=== PATIENT | male | born 1970 | race African-American/Black ===

== ENCOUNTER 2017-01-19 09:08 | Inpatient (IN) | payer BC ==
[2017-01-19 09:53] VITALS: BMI 23.4
--- NOTE | 2017-01-19 11:41 | HP ---
CIWA Score - CIWA Score Nausea/Vomitin-No Nausea/No Vomiting Muscle Tremors: 4-Moderate,w/Arms Extend Anxiety: 3 Agitation: 4-Moderately Restless Paroxysmal Sweats: 3 Orientation: 0-Oriented Tacttile Disturbances: 0-None Auditory Disturbances: 0-None Visual Disturbances: 0-None Headache: 0-None Present CIWA-Ar Total Score: 14 Admission ROS BHS - HPI Chief Complaint: Withdrawal sx. Allergies/Adverse Reactions: Allergies Allergy/AdvReac Type Severity Reaction Status Date / Time tomato Allergy Severe Swelling Verified 01/19/17 10:23 SEAFOOD Allergy Severe Hives Uncoded 01/19/17 10:23 NKDA Allergy Uncoded 01/19/17 11:25 History of Present Illness: 47 y/o man with a long hx. of alcoholism is admitted for detox. Pt. has been in previous detox,he reports 6 yrs. sober. Exam Limitations: No Limitations - Ebola screening Have you traveled outside of the country in the last 21 days: No Have you had contact with anyone from an Ebola affected area: No Have you been sick,other than usual withdrawal symptoms: No Do you have a fever: No - Review of Systems Constitutional: Diaphoresis EENT: reports: No Symptoms Reported Respiratory: reports: No Symptoms reported Cardiac: reports: Palpitations (pulse 110) GI: reports: Nausea, Abdominal cramping : reports: No Symptoms Reported Musculoskeletal: reports: Back Pain, Joint Pain, Muscle Pain Integumentary: reports: Sweating Neuro: reports: Tremors Endocrine: reports: No Symptoms Reported Hematology: reports: No Symptoms Reported Psychiatric: reports: No Sypmtoms Reported Other Systems: Reviewed and Negative Patient History - Patient Medical History Hx Anemia: Yes (was on feosol) Hx Asthma: No Hx Chronic Obstructive Pulmonary Disease (COPD): No Hx Cancer: No Hx Cardiac Disorders: Yes (stent in the descending aorta because of aneurysm) Hx Congestive Heart Failure: Yes Hx Hypertension: Yes Hx Hypercholesterolemia: Yes (no meds) Hx Pacemaker: No HX Cerebrovascular Accident: No Hx Seizures: No Hx Dementia: No Hx Diabetes: No Hx Gastrointestinal Disorders: Yes (stomach ulcer/acid reflux) Hx Liver Disease: No Hx Genitourinary Disorders: No Hx Sexually Transmitted Disorders: No Hx Renal Disease (ESRD): No Hx Thyroid Disease: No Hx Human Immunodeficiency Virus (HIV): No Hx Hepatitis C: No Hx Depression: Yes (lexapro) Hx Suicide Attempt: No Hx Bipolar Disorder: No Hx Schizophrenia: No - Patient Surgical History Past Surgical History: Yes Hx Neurologic Surgery: No Hx Cataract Extraction: No Hx Cardiac Surgery: Yes (Stent in descending aorta) Hx Lung Surgery: No Hx Breast Surgery: No Hx Breast Biopsy: No Hx Abdominal Surgery: No Hx Appendectomy: No Hx Cholecystectomy: No Hx Genitourinary Surgery: No Hx Section: No Hx Orthopedic Surgery: Yes (left hip replacement, right knee/leg, right/arm/ right small toe x2) Anesthesia Reaction: No - PPD History Previous Implant?: Yes Documented Results: Positive w/o proof Implanted On Prior [facility] Admission?: No PPD to be Administered?: No - Smoking Cessation Smoking history: Current every day smoker Have you smoked in the past 12 months: Yes Aproximately how many cigarettes per day: 10 Hx Chewing Tobacco Use: No Initiated information on smoking cessation: Yes 'Breaking Loose' booklet given: 01/19/17 - Substance & Tx. History Hx Alcohol Use: Yes Hx Substance Use: No Substance Use Type: Alcohol Hx Substance Use Treatment: Yes (detox) - Substances Abused Alcohol-beer/vodka Route: Oral Frequency: Daily Amount used: 2-6 pks./1 pt. Age of first use: 8 Date of Last Use: 01/19/17 Family Disease History - Family Disease History Family Disease History: Diabetes: Father (HTN), Heart Disease: Father Admission Physical Exam BHS - Vital Signs Vital Signs: Vital Signs - 24 hr 01/19/17 09:49 Temperature 97.2 F L Pulse Rate 110 H Respiratory 20 Rate Blood Pressure 125/92 - Physical General Appearance: Yes: Tremorous, Sweating, Anxious HEENTM: Yes: Within Normal Limits Respiratory: Yes: Chest Non-Tender, Lungs Clear, Normal Breath Sounds Neck: Yes: Supple Breast: Yes: Breast Exam Deferred Cardiology: Yes: Regular Rhythm, Regular Rate, S1, S2 Abdominal: Yes: Normal Bowel Sounds, Non Tender, Soft Genitourinary: Yes: Within Normal Limits Back: Yes: Within Normal Limits Musculoskeletal: Yes: Within Normal Limits Extremities: Yes: Tremors, Other (multiple surgical scars) Neurological: Yes: Fully Oriented, Alert Integumentary: Yes: Diaphoresis Lymphatic: Yes: Within Normal Limits - Diagnostic (1) Alcohol dependence with uncomplicated withdrawal Current Visit: Yes Status: Acute (2) CHF (congestive heart failure) Current Visit: Yes Status: Acute Qualifiers: Congestive heart failure type: combined Congestive heart failure chronicity: chronic Qualified Code(s): I50.42 - Chronic combined systolic (congestive) and diastolic (congestive) heart failure (3) HTN (hypertension) Current Visit: Yes Status: Acute Qualifiers: Hypertension type: essential hypertension Qualified Code(s): I10 - Essential (primary) hypertension Cleared for Admission BHS - Detox or Rehab [facility] Level of Care: Medically Managed Detox Regimen/Protocol: Librium [facility] Breath Alcohol Content Breath Alcohol Content: 0 Urine Drug Screen - Results Drug Screen Negative: Yes
[2017-01-19] MEDS ORDERED: NICOTINE POLACRILEX 2 MG GUM BUC PRN (11:53)
[2017-01-19] MEDS ORDERED: IBUPROFEN 400 MG TABLET (FP) PO PRN ×2 (11:53→12:05)
[2017-01-19] MEDS ORDERED: guaiFENesin/D-METHORPHAN HB 10 ML UNIT-DOSE CUPS PO PRN (11:53)
[2017-01-19] MEDS ORDERED: MENTHOL/PHENOL 1 EACH UD MM PRN (11:53)
[2017-01-19] MEDS ORDERED: diphenhydrAMINE HCL 50 MG CAPSULE PO PRN (11:53)
[2017-01-19] MEDS ORDERED: MAG HYDROX/AL HYDROX/SIMETH 30 ML UNIT-DOSE CUP PO PRN (11:53)
[2017-01-19] MEDS ORDERED: P-EPHED 60MG/TRIPROLIDI 2.5MG TABLET PO PRN (11:53)
[2017-01-19] MEDS ORDERED: MAGNESIUM HYDROX 2400MG/30ML ORAL SUSPENSION 30 ML CUP PO PRN (11:53)
[2017-01-19] MEDS ORDERED: chlordiazePOXIDE HCL 25 MG CAPSULE PO PRN (11:53)
[2017-01-19] MEDS ORDERED: MAGNESIUM CITRATE 300 ML BOTTLE PO PRN (11:53)
[2017-01-19] MEDS ORDERED: LOPERAMIDE HCL 2 MG CAPSULE PO PRN (11:53)
[2017-01-19] MEDS ORDERED: ACETAMINOPHEN 325 MG TABLET (FP) PO PRN (11:53)
[2017-01-19] MEDS ORDERED: diphenhydrAMINE HCL 25 MG CAPSULE (FP) PO PRN (12:04)
[2017-01-19] MEDS ORDERED: chlordiazePOXIDE HCL 25 MG CAPSULE PO ONE (12:53)
[2017-01-19] MEDS ORDERED: ASPIRIN 81 MG CHEWABLE TABLETS PO SCH (12:55)
[2017-01-19] MEDS ORDERED: amLODIPine BESYLATE 10 MG TABLET (FP) PO SCH (12:55)
[2017-01-19] MEDS ORDERED: PANTOPRAZOLE 40 MG TABLET (FP) PO SCH (12:57)
[2017-01-19] MEDS ORDERED: NICOTINE 21 MG/24 HOURS TOPICAL PATCH TD SCH (12:58)
[2017-01-19] MEDS: CARVEDILOL 25 MG TABLET (FP) PO SCH ×2 (14:53→23:14)
--- NOTE | 2017-01-19 16:35 | CONSULT ---
[facility] Psychiatric Consult - Data Date of interview: 01/20/17 Admission source: [facility] Identifying data: This is 47 years old male, AMBULATING WITH CANE, with psychiatric hospitalization history intoxicated with;. Alcohol and Nicotine Substance Abuse History: Smoking Cessation. Smoking history: Current every day smoker. Have you smoked in the past 12 months: Yes. Aproximately how many cigarettes per day: 10. Hx Chewing Tobacco Use: No. Initiated information on smoking cessation: Yes. 'Breaking Loose' booklet given: 01/19/17. - Substance & Tx. History. Hx Alcohol Use: Yes. Hx Substance Use: No. Substance Use Type : Alcohol. Hx Substance Use Treatment: Yes (detox). - Substances Abused. Alcohol-beer/vodka. Route: Oral. Frequency: Daily. Amount used: 2-6 pks./1 pt. Age of first use: 8. Date of Last Use: 01/19/17 Medical History: CHF, HTN, lower extremities injures Psychiatric History: Patient reports history of depressionl preoccupied with psychiatric medications, reports taking prior to admission: Elavil 25mg po9 bid. Lexapro 20mg poqd. Gabapentin 400mg po bid. [id number] po qhs. Trazodone 200mg po qhs Physical/Sexual Abuse/Trauma History: Denies Additional Comment: Elavil 25mg po9 bid. Lexapro 20mg poqd. Gabapentin 400mg po bid. [id number] po qhs. Trazodone 200mg po qhs Mental Status Exam - Mental Status Exam Alert and Oriented to: Person Cognitive Function: Fair Patient Appearance: Unkempt Mood: Anxious Affect: Mood Congruent Patient Behavior: Impulsive, Talkative Speech Pattern: Excessive Voice Loudness: Mildly Loud Thought Process: Circumstantial, Goal Oriented Thought Disorder: Being Controlled Hallucinations: Denies Suicidal Ideation: Denies Homicidal Ideation: Denies Insight/Judgement: Fair Sleep: Difficulty falling asleep Appetite: Weight loss Muscle strength/Tone: Mild Hypotonicity Gait/Station: Hemiparetic Additional Comments: Elavil 25mg po9 bid. Lexapro 20mg poqd. Gabapentin 400mg po bid. [id number] po qhs. Trazodone 200mg po qhs Psychiatric Findings - Problem List ([place] 1, 2,3) (1) Alcohol dependence with uncomplicated withdrawal Current Visit: Yes Status: Acute (2) Nicotine dependence Current Visit: Yes Status: Acute (3) Drug-induced mood disorder Current Visit: Yes Status: Acute (4) ADHD (attention deficit hyperactivity disorder) Current Visit: Yes Status: Acute - Initial Treatment Plan Initial Treatment Plan: Elavil 25mg po9 bid. Lexapro 20mg poqd. Gabapentin 400mg po bid. [id number] po qhs. Trazodone 200mg po qhs
[2017-01-19] MEDS: chlordiazePOXIDE HCL 25 MG CAPSULE PO SCH ×2 (17:28→23:14)
[2017-01-19 20:03] LABS: URINE APPEARANCE CLEAR; URINE BILIRUBIN NEGATIVE (NEGATIVE); URINE BLOOD NEGATIVE (NEGATIVE); URINE COLOR LTYELLOW; URINE GLUCOSE (UA) NEGATIVE (NEGATIVE); URINE KETONE NEGATIVE (NEGATIVE); URINE LEUK ESTERASE NEGATIVE (NEGATIVE); URINE NITRITE NEGATIVE (NEGATIVE); URINE UROBILINOGEN NEGATIVE E.U./dl (0.2-1.0)
[2017-01-19 20:13] LABS: URINE PROTEIN 3+ (NEGATIVE)
[2017-01-19 20:24] LABS: URINE MUCUS RARE; URINE RBC <1 /hpf (0-3); URINE WBC 2 /hpf (3-5)
[2017-01-19] MEDS ORDERED: THIAMINE HCL 100 MG TABLET (FP) PO SCH (22:00)
[2017-01-19] MEDS ORDERED: hydrALAZINE HCL 25 MG TABLET (FP) PO SCH (22:00)
[2017-01-20] MEDS: chlordiazePOXIDE HCL 25 MG CAPSULE PO SCH (06:14)
[2017-01-20 09:50] LABS: MCHC 31.1 g/dl (32.0-35.9); MEAN CELL VOLUME 77.2 fl (80-96); MEAN PLT VOLUME 7.5 fl (7.5-11.1); PLATELET COUNT 726 K/MM3 (134-434); RDW 18.9 % (11.9-15.9); WHITE BLOOD COUNT 6.9 K/mm3 (4.0-10.0)
[2017-01-20 09:54] LABS: ALBUMIN 3.4 g/dl (3.4-5.0); BILIRUBIN,TOTAL 0.2 mg/dL (0.2-1.0); CALCIUM 9.4 mg/dL (8.5-10.1); CREATININE 1.5 mg/dL (0.7-1.3); TOT PROT 7.9 g/dl (6.4-8.2)
[2017-01-20] MEDS ORDERED: ESCITALOPRAM OXALATE 20 MG TABLET (FP) PO SCH (10:00)
[2017-01-20] MEDS ORDERED: AMITRIPTYLINE HCL 25 MG TABLET (FP) PO SCH (10:00)
[2017-01-20] MEDS ORDERED: GABAPENTIN 400 MG CAPSULE (FP) PO SCH (10:00)
[2017-01-20] MEDS ORDERED: PRENATAL VITAMINS W/ FOLIC ACID TABLET (FP) PO SCH (10:00)
[2017-01-20 10:11] VITALS: BP 148/93; PULSE 92; TEMP 98.8
--- NOTE | 2017-01-20 10:40 | PN ---
S Progress Note Note: pt became irrate screaming yelling at entire staff non approachable; security called pt escorted off the unit; administrative discharge
--- NOTE | 2017-01-20 10:41 | DS ---
[facility] Detox Discharge Summary Admission Date: 01/19/17 Discharge Date: 01/20/17 (non compliant ) - History Present History: Alcohol Dependence - Physical Exam Results Vital Signs: Vital Signs Temperature 98.8 F 01/20/17 10:11 Pulse Rate 92 H 01/20/17 10:11 Respiratory Rate 20 01/20/17 10:11 Blood Pressure 148/93 01/20/17 10:11 O2 Sat by Pulse Oximetry (%) - Medication Discharge Medications: Ambulatory Orders Amitriptyline HCl [Elavil -] 25 mg PO HS 01/19/17 Amlodipine Besylate [Norvasc -] 10 mg PO DAILY 01/19/17 Aspirin [ASA -] 81 mg PO DAILY 01/19/17 Carvedilol [Coreg -] 25 mg PO BID 01/19/17 Diphenhydramine [Benadryl -] 50 mg PO TID 01/19/17 Escitalopram Oxalate [Lexapro -] 20 mg PO DAILY 01/19/17 Gabapentin [Neurontin -] 400 mg PO BID 01/19/17 Hydralazine HCl [Apresoline -] 25 mg PO TID 01/19/17 Hydrochlorothiazide [Hctz -] 25 mg PO BID 01/19/17 Pantoprazole Sodium [Protonix -] 40 mg PO DAILY 01/19/17 Trazodone HCl [Desyrel -] 100 mg PO HS 01/19/17 Zolpidem Tartrate [Ambien] 10 mg PO HS 01/19/17 Amitriptyline HCl [Elavil -] 25 mg PO BID #60 tablet 01/20/17 Escitalopram Oxalate [Lexapro -] 20 mg PO DAILY #30 tablet 01/20/17 Gabapentin [Neurontin -] 400 mg PO BID #60 capsule 01/20/17 Trazodone HCl [Desyrel -] 200 mg PO HS #30 tablet 01/20/17 Zolpidem Tartrate [Ambien] 10 mg PO HS #14 tablet MDD 10 01/20/17 - Diagnosis (1) ADHD (attention deficit hyperactivity disorder) Current Visit: Yes Status: Acute (2) Alcohol dependence with uncomplicated withdrawal Current Visit: Yes Status: Chronic (3) CHF (congestive heart failure) Current Visit: Yes Status: Acute Qualifiers: Congestive heart failure type: combined Congestive heart failure chronicity: chronic Qualified Code(s): I50.42 - Chronic combined systolic (congestive) and diastolic (congestive) heart failure (4) Drug-induced mood disorder Current Visit: Yes Status: Acute (5) HTN (hypertension) Current Visit: Yes Status: Chronic Qualifiers: Hypertension type: essential hypertension Qualified Code(s): I10 - Essential (primary) hypertension (6) Nicotine dependence Current Visit: Yes Status: Chronic Qualifiers: Nicotine product type: cigarettes Substance use status: uncomplicated Qualified Code(s): F17.210 - Nicotine dependence, cigarettes, uncomplicated - AMA Did Patient Leave Against Medical Advice: No
[2017-01-20 11:44] LABS: SICKLE CELL SCREEN NEGATIVE (NEGATIVE)
--- NOTE | 2017-01-20 12:52 | EKG ---
Test Reason : Blood Pressure : / mmHG Vent. Rate : 084 BPM Atrial Rate : 084 BPM P-R Int : 164 ms QRS Dur : 080 ms QT Int : 386 ms P-R-T Axes : 062 048 014 degrees QTc Int : 456 ms NORMAL SINUS RHYTHM POSSIBLE LEFT ATRIAL ENLARGEMENT BORDERLINE ECG NO PREVIOUS ECGS AVAILABLE Confirmed by TESSA LOWE MD ([id number]) on 01/20/2017 12:52:07 PM Referred By: Confirmed By:TESSA LOWE MD
[2017-01-20] MEDS ORDERED: chlordiazePOXIDE HCL 25 MG CAPSULE PO SCH (17:00)
[2017-01-20] MEDS ORDERED: traZODone HCL 100 MG TABLET (FP) PO SCH (22:00)
[2017-01-20] MEDS ORDERED: ZOLPIDEM TARTRATE 10 MG TABLET (PARK CARE ONLY) PO PRN (22:00)
[2017-01-21] MEDS ORDERED: chlordiazePOXIDE 5 MG CAPSULE PO SCH (17:00)
[2017-01-22] MEDS ORDERED: chlordiazePOXIDE HCL 10 MG CAPSULE PO SCH (17:00)
== END 2017-01-20 10:32 | disposition home or self-care (01) | DRG 775 ==
LOC: YASAS 09:08 → Y6N 12:43
PROVIDERS: ADMIT Internal Medicine Addiction Medicine; ATTEND Internal Medicine Addiction Medicine
PROC: HZ2ZZZZ Detoxification Services for Substance Abuse Treatment (ICD-10-PCS; principal; 2017-01-19)
DX: F10.230 Alcohol dependence with withdrawal, uncomplicated (principal); F17.210 Nicotine dependence, cigarettes, uncomplicated; F90.9 Attention-deficit hyperactivity disorder, unspecified type; F19.24 Other psychoactive substance dependence with psychoactive substance-induced mood disorder; I10 Essential (primary) hypertension; I50.42 Chronic combined systolic (congestive) and diastolic (congestive) heart failure; K21.9 Gastro-esophageal reflux disease without esophagitis; Z86.2 Personal history of diseases of the blood and blood-forming organs and certain disorders involving the immune mechanism; Z95.5 Presence of coronary angioplasty implant and graft; Z86.79 Personal history of other diseases of the circulatory system; Z96.641 Presence of right artificial hip joint; Z87.11 Personal history of peptic ulcer disease; F91.8 Other conduct disorders
CPT/HCPCS: 36415; 80053; 81003; 81015; 85027; 85660; 86593; 93005; 93010

== ENCOUNTER 2018-01-21 11:11 | Inpatient (IN) | payer BC ==
[2018-01-21 11:47] VITALS: BMI 20.3
--- NOTE | 2018-01-21 14:08 | HP ---
COWS - Scale Resting Pulse: 1= DC 81-100 Sweatin=Flushed/Facial Moisture Restless Observation: 1= Difficult to Sit Still Pupil Size: 1= Pupils >than Normal Bone or Joint Aches: 2= Severe Diffuse Aches Runny Nose/ Eye Tearin= Nasal Congestion GI Upset > 30mins: 2= Nausea/Diarrhea Tremor Observation: 2= Slight Tremor Visible Yawning Observation: 0= None Anxiety or Irritability: 1=Feels Anxious/Irritable Goose Flesh Skin: 0=Smooth Skin COWS Score: 13 CIWA Score - CIWA Score Nausea/Vomitin Muscle Tremors: 3 Anxiety: 2 Agitation: 2 Paroxysmal Sweats: 2 Orientation: 0-Oriented Tacttile Disturbances: 2-Mild Itch/Numbness/Burn Auditory Disturbances: 0-None Visual Disturbances: 0-None Headache: 2-Mild CIWA-Ar Total Score: 16 Admission ROS S - HPI Chief Complaint: I need to stop using alcohol. Allergies/Adverse Reactions: Allergies Allergy/AdvReac Type Severity Reaction Status Date / Time tomato Allergy Severe Swelling Verified 01/21/18 14:12 SEAFOOD Allergy Severe Hives Uncoded 01/21/18 14:12 NKDA Allergy Uncoded 01/21/18 14:12 History of Present Illness: Pt with h/o alcohol dependency needs detox. Exam Limitations: No Limitations - Ebola screening Have you traveled outside of the country in the last 21 days: No (N) Have you had contact with anyone from an Ebola affected area: No Have you been sick,other than usual withdrawal symptoms: No Do you have a fever: No - Review of Systems Constitutional: Loss of Appetite, Malaise, Night Sweats, Changes in sleep, Unintentional Wgt. Loss EENT: reports: Blurred Vision, Dental Problems (missing teeth) Respiratory: reports: No Symptoms reported Cardiac: reports: Other (chf, s/p descending aorta stent) GI: reports: Nausea, Poor Appetite, Indigestion : reports: No Symptoms Reported Musculoskeletal: reports: Joint Pain, Muscle Pain, Muscle Weakness, Joint Stiffness Integumentary: reports: Dryness, Sweating Neuro: reports: Headache, Tremors, Weakness Endocrine: reports: No Symptoms Reported Hematology: reports: Anemia Psychiatric: reports: Orientated x3, Anxious, Depressed Other Systems: Reviewed and Negative Patient History - Patient Medical History Hx Anemia: Yes (was on feosol) Hx Asthma: No Hx Chronic Obstructive Pulmonary Disease (COPD): No Hx Cancer: No Hx Cardiac Disorders: Yes (stent in the descending aorta because of aneurysm) Hx Congestive Heart Failure: Yes Hx Hypertension: Yes Hx Hypercholesterolemia: Yes (no meds) Hx Pacemaker: No HX Cerebrovascular Accident: No Hx Seizures: No Hx Dementia: No Hx Diabetes: No Hx Gastrointestinal Disorders: Yes (stomach ulcer/acid reflux) Hx Liver Disease: No Hx Genitourinary Disorders: No Hx Sexually Transmitted Disorders: No Hx Renal Disease (ESRD): No Hx Thyroid Disease: No Hx Human Immunodeficiency Virus (HIV): No Hx Hepatitis C: No Hx Depression: Yes (lexapro) Hx Suicide Attempt: No Hx Bipolar Disorder: Yes Hx Schizophrenia: No - Patient Surgical History Past Surgical History: Yes Hx Neurologic Surgery: No Hx Cataract Extraction: No Hx Cardiac Surgery: Yes (Stent in descending aorta) Hx Lung Surgery: No Hx Breast Surgery: No Hx Breast Biopsy: No Hx Abdominal Surgery: No Hx Appendectomy: No Hx Cholecystectomy: No Hx Genitourinary Surgery: No Hx Section: No Hx Orthopedic Surgery: Yes (left hip replacement, right knee/leg, right/arm/ right small toe x2) Other Surgical History: aneurysm (aorta) Anesthesia Reaction: No - PPD History Previous Implant?: Yes Documented Results: Positive w/o proof Implanted On Prior [facility] Admission?: No PPD to be Administered?: No - Reproductive History Patient is a Female of Child Bearing Age (11 -55 yrs old): No - Smoking Cessation Smoking history: Current every day smoker Have you smoked in the past 12 months: Yes Aproximately how many cigarettes per day: 10 Cigars Per Day: 0 Hx Chewing Tobacco Use: No Initiated information on smoking cessation: Yes 'Breaking Loose' booklet given: 01/21/18 - Substance & Tx. History Hx Alcohol Use: Yes Hx Substance Use: Yes Substance Use Type: Alcohol, Cocaine, Opiates Hx Substance Use Treatment: Yes - Substances Abused Alcohol-lana/beer Route: Oral Frequency: Daily Amount used: 2 pts./8-12 (16 oz.) Age of first use: 8 Date of Last Use: 01/21/18 Oxycodone (prescribed) Route: Oral Frequency: Daily Amount used: 30 mg. QID Age of first use: 43 Date of Last Use: 01/19/18 Family Disease History - Family Disease History Family Disease History: Diabetes: Father (HTN), Heart Disease: Father Admission Physical Exam S - Vital Signs Vital Signs: Vital Signs - 24 hr 01/21/18 11:45 Temperature 97.2 F L Pulse Rate 86 Respiratory 20 Rate Blood Pressure 162/91 - Physical General Appearance: Yes: Disheveled, Thin, Anxious, Other (ambulates with a cane ) HEENTM: Yes: EOMI, Hearing grossly Normal, JON, Other (multiple missing teeth others in poor repair) Respiratory: Yes: Chest Non-Tender, Lungs Clear, Normal Breath Sounds, No Respiratory Distress Neck: Yes: Supple Breast: Yes: Within Normal Limits Cardiology: Yes: Regular Rhythm, Regular Rate, S1, S2 Abdominal: Yes: Non Tender, Flat, Soft, Increased Bowel Sounds Genitourinary: Yes: Within Normal Limits Back: Yes: Within Normal Limits Musculoskeletal: Yes: Back pain, Joint Stiffness, Muscle Pain, Muscle weakness, Other (multiple well healed scars rt forearm, left hip, rt knee and leg. Multiple joint deformities hands /digits hieu.) Extremities: Yes: Tremors Neurological: Yes: roadside mechanic II-XII NML intact, Fully Oriented, Alert, Normal Mood/ Affect Integumentary: Yes: Moist Lymphatic: Yes: Within Normal Limits - Diagnostic (1) Opioid dependence Current Visit: Yes Status: Chronic Qualifiers: Substance use status: uncomplicated Qualified Code(s): F11.20 - Opioid dependence, uncomplicated (2) Status post left hip replacement Current Visit: No Status: Chronic (3) Rheumatoid arthritis Current Visit: Yes Status: Chronic Qualifiers: Rheumatoid arthritis location: multiple sites (4) CHF (congestive heart failure) Current Visit: No Status: Chronic Qualifiers: Qualified Code(s): I50.42 - Chronic combined systolic (congestive) and diastolic (congestive) heart failure (5) Alcohol dependence with uncomplicated withdrawal Current Visit: Yes Status: Chronic (6) HTN (hypertension) Current Visit: Yes Status: Chronic Qualifiers: Hypertension type: essential hypertension Qualified Code(s): I10 - Essential (primary) hypertension (7) Nicotine dependence Current Visit: Yes Status: Chronic Qualifiers: Nicotine product type: cigarettes Substance use status: uncomplicated Qualified Code(s): F17.210 - Nicotine dependence, cigarettes, uncomplicated (8) Ascending aortic aneurysm Current Visit: Yes Status: Acute (9) 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
[2018-01-21] MEDS ORDERED: MAGNESIUM HYDROX 2400MG/30ML ORAL SUSPENSION 30 ML CUP PO PRN (14:19)
[2018-01-21] MEDS ORDERED: P-EPHED 60MG/TRIPROLIDI 2.5MG TABLET PO PRN (14:19)
[2018-01-21] MEDS ORDERED: guaiFENesin/D-METHORPHAN HB 10 ML UNIT-DOSE CUPS PO PRN (14:19)
[2018-01-21] MEDS ORDERED: LOPERAMIDE HCL 2 MG CAPSULE PO PRN (14:19)
[2018-01-21] MEDS ORDERED: MAGNESIUM CITRATE 300 ML BOTTLE PO PRN (14:19)
[2018-01-21] MEDS ORDERED: MAG HYDROX/AL HYDROX/SIMETH 30 ML UNIT-DOSE CUP PO PRN (14:19)
[2018-01-21] MEDS ORDERED: NICOTINE POLACRILEX 4 MG GUM BUC PRN (14:19)
[2018-01-21] MEDS ORDERED: MENTHOL/PHENOL 1 EACH UD MM PRN (14:19)
[2018-01-21] MEDS ORDERED: chlordiazePOXIDE HCL 25 MG CAPSULE PO PRN (14:19)
[2018-01-21] MEDS ORDERED: IBUPROFEN 400 MG TABLET (FP) PO PRN (14:19)
[2018-01-21] MEDS ORDERED: hydrOXYzine PAMOATE 50 MG CAPSULE (FP) PO PRN (14:19)
[2018-01-21] MEDS ORDERED: METHADONE HCL 10 MG TABLET (FOR DETOX USE ONLY) PO ONE ×2 (15:25→23:00)
[2018-01-21 17:51] LABS: HEMATOCRIT 33.6 % (35.4-49); MCH 24.7 pg (25.7-33.7); MCHC 32.7 g/dl (32.0-35.9); MEAN CELL VOLUME 75.4 fl (80-96); MEAN PLT VOLUME 7.5 fl (7.5-11.1); PLATELET COUNT 593 K/MM3 (134-434); RBC 4.45 M/mm3 (4.00-5.60); RDW 20.1 % (11.9-15.9); WHITE BLOOD COUNT 5.1 K/mm3 (4.0-10.0)
[2018-01-21 18:10] LABS: ALBUMIN 3.7 g/dl (3.4-5.0); ANION GAP 10 (8-16); BLOOD UREA NITROGEN 27 mg/dL (7-18); CALCIUM 8.8 mg/dL (8.5-10.1); CHLORIDE 102 mmol/L (98-107); CO2 25 mmol/L (21-32); GLUCOSE,RANDOM 72 mg/dL (74-106); POTASSIUM 4.1 mmol/L (3.5-5.1); SODIUM 137 mmol/L (136-145)
[2018-01-21 18:13] LABS: ALK PHOS 132 U/L (45-117); BILIRUBIN,TOTAL 0.4 mg/dL (0.2-1.0); CREATININE 2.4 mg/dL (0.7-1.3); SGOT/AST 13 U/L (15-37); SGPT/ALT 7 U/L (12-78); TOT PROT 7.6 g/dl (6.4-8.2)
[2018-01-21] MEDS ORDERED: METHADONE HCL 10 MG TABLET (FOR DETOX USE ONLY) ONE (18:36)
[2018-01-21] MEDS: chlordiazePOXIDE HCL 25 MG CAPSULE PO SCH ×2 (18:46→22:20)
--- NOTE | 2018-01-21 19:19 | CONSULT ---
[facility] Psychiatric Consult - Data Date of interview: 01/21/18 Admission source: [facility] Identifying data: Readmission to [facility] for this 48 y/o AA male seeking detox treatment on for alcohol,cocaine and opiate dependence.Patient is ,no children,domiciled (lives with brother),unemployed,disabled and supported on SSI benefits. Substance Abuse History: Discussed with patient in this interview.Mr Damian endorses daily consumption of lana (2-3 pints daily, depending on available funds) + 8-12 X 16 oz of beer.For years.Uses crack three times a week but admits to a recent binge of crack (allegedly spent 500 dollars worth of the substance in past 3 days). Details in this imported [facility] report : Smoking history : Current every day smoker. Have you smoked in the past 12 months: Yes. Aproximately how many cigarettes per day: 10. Hx Chewing Tobacco Use: No. Initiated information on smoking cessation: Yes. 'Breaking Loose' booklet given : 01/19/17. - Substance & Tx. History. Hx Alcohol Use: Yes. Hx Substance Use : No. Substance Use Type: Alcohol. Hx Substance Use Treatment: Yes (detox). - Substances Abused. Alcohol-beer/vodka. Route: Oral. Frequency: Daily. Amount used: 2-6 pks./1 pt. Age of first use: 8. Date of Last Use: 01/19/17 Medical History: Multiple medical co-morbidities : congestive heart failure, rheumatoid arthritis,chronic pain syndrome,past history of osteomyelitis (right leg and toes),gastric ulcer,antecedent of left hip replacement,orthosurgery ( right knee + right forearm),residual contracture of right forearm (surgical scars),weight loss and a recent history of cardiac stent (dissecting aneurysm of the descending thoracic aorta).Mr Damian ambulates with a cane. Psychiatric History: Patient admits to one psychiatric hospitalization at [facility] (May 2017).Diagnosed with MDD,Anxiety Disorder and " some bipolar issues ".Prescribed a regimen of trazodone 100 mg/hs + lexapro 20 mg/day + amitryptiline 25 mg/hs + ambien 10 mg/hs.Mr Damian goes to the [facility] clinic,in the [place], for his psychiatric aftercare.He indicates that he last took his medications 2-3 days prior to this [facility] visit.Patient denies history of suicide attempts. Physical/Sexual Abuse/Trauma History: Patient denies history of abuse. Additional Comment: Urine Drug Screen Results: MYA-Cocaine, TCA-Tricyclic Antidepressant, OXY-Oxycodone.Noted. Mental Status Exam - Mental Status Exam Alert and Oriented to: Time, Place, Person Cognitive Function: Good Patient Appearance: Well Groomed (thin habitus,cheloid scars on right wrist/ forearm) Mood: Hopeful (calm), Euthymic Affect: Appropriate, Normal Range Patient Behavior: Fatigued, Talkative, Appropriate, Cooperative Speech Pattern: Clear, Appropriate Voice Loudness: Normal Thought Process: Goal Oriented Thought Disorder: Not Present Hallucinations: Denies Suicidal Ideation: Denies Homicidal Ideation: Denies Insight/Judgement: Poor Sleep: Poorly, Difficulty falling asleep Appetite: Good Gait/Station: Other (walks with a cane ; unsteady gait due to orthopedic issues) Psychiatric Findings - Problem List ([place] 1, 2,3) (1) Alcohol dependence with uncomplicated withdrawal Current Visit: Yes Status: Chronic (2) Opioid dependence Current Visit: Yes Status: Chronic Qualifiers: Substance use status: uncomplicated Qualified Code(s): F11.20 - Opioid dependence, uncomplicated (3) Cocaine dependence Current Visit: Yes Status: Acute (4) Nicotine dependence Current Visit: Yes Status: Acute Qualifiers: Nicotine product type: cigarettes Substance use status: uncomplicated Qualified Code(s): F17.210 - Nicotine dependence, cigarettes, uncomplicated (5) Drug-induced mood disorder Current Visit: Yes Status: Suspected (6) Depressive disorder Current Visit: Yes Status: Chronic Comment: As per self-report and existing records.On medications.OPD care at [facility]. (7) Insomnia Current Visit: Yes Status: Acute - Initial Treatment Plan Initial Treatment Plan: Records revisited.Psychoeducation and support provided in this session.Sleep hygiene.Falls precautions.Detoxification is initiated.Orientation to unit : done by nursing team.Patient is advised to attend to / participate in groups,community meetings and recreational activities occurring in this hospital course.He agrees.Medications reconciled : trazodone 50 mg po hs (reduced) + lexapro 20 mg po daily + elavil 25 mg /hs ( temporarily withdrawn) + ambien 10 mg po hs prn.Side effects/benefits of each drug are discussed with the patient.Mr Damian is made aware of the risk for parasomnias (sleep-walking),sexual dysfunction,suicidal ideation,priapism and oversedation.Consent (verbal) given for the inclusion of these drugs in the current regime of treatment.Doses will be modified as clinically indicated.Clinical course will be monitored on a daily basis.
[2018-01-21] MEDS: THIAMINE HCL 100 MG TABLET (FP) PO SCH (21:27)
[2018-01-21] MEDS: ACETAMINOPHEN 325 MG TABLET (FP) PO PRN (21:28)
[2018-01-21] MEDS: GABAPENTIN 400 MG CAPSULE (FP) PO SCH (21:30)
[2018-01-21] MEDS: traZODone HCL 50 MG TABLET (FP) PO SCH (21:31)
[2018-01-21] MEDS: CARVEDILOL 25 MG TABLET (FP) PO SCH (21:31)
[2018-01-21] MEDS: ZOLPIDEM TARTRATE 10 MG TABLET (PARK CARE ONLY) PO SCH (21:38)
[2018-01-21 23:00] LABS: URINE APPEARANCE TURBID; URINE BILIRUBIN NEGATIVE (NEGATIVE); URINE BLOOD NEGATIVE (NEGATIVE); URINE COLOR YELLOW; URINE GLUCOSE (UA) NEGATIVE (NEGATIVE); URINE KETONE NEGATIVE (NEGATIVE); URINE LEUK ESTERASE NEGATIVE (NEGATIVE); URINE NITRITE NEGATIVE (NEGATIVE); URINE PROTEIN 2+ (NEGATIVE); URINE UROBILINOGEN NEGATIVE mg/dL (0.2-1.0)
[2018-01-21 23:03] LABS: EPI CELLS RARE /HPF (FEW); URINE BACTERIA RARE /hpf (NONE SEEN); URINE MUCUS RARE
[2018-01-22] MEDS: chlordiazePOXIDE HCL 25 MG CAPSULE PO SCH ×4 (05:54→22:24)
[2018-01-22] MEDS: GABAPENTIN 400 MG CAPSULE (FP) PO SCH ×3 (05:54→22:22)
[2018-01-22] MEDS ORDERED: PANTOPRAZOLE 40 MG TABLET (FP) PO SCH (10:00)
[2018-01-22] MEDS ORDERED: METHADONE HCL 10 MG TABLET (FOR DETOX USE ONLY) PO SCH (10:00)
[2018-01-22] MEDS ORDERED: COLLOIDAL OATMEAL 1 BAR EACH TP PRN (10:23)
[2018-01-22] MEDS ORDERED: diphenhydrAMINE HCL 50 MG CAPSULE PO ONE (10:30)
[2018-01-22] MEDS ORDERED: HYDROCORTISONE 1% TOPICAL OINT 30 GM TUBE TP SCH (10:30)
[2018-01-22] MEDS: ESCITALOPRAM OXALATE 20 MG TABLET (FP) PO SCH (10:37)
[2018-01-22] MEDS: amLODIPine BESYLATE 10 MG TABLET (FP) PO SCH (10:38)
[2018-01-22] MEDS: PRENATAL VITAMINS W/ FOLIC ACID TABLET (FP) PO SCH (10:38)
[2018-01-22] MEDS: CARVEDILOL 25 MG TABLET (FP) PO SCH ×2 (10:39→22:23)
[2018-01-22] MEDS: ASPIRIN 81 MG CHEWABLE TABLETS PO SCH (10:40)
[2018-01-22] MEDS ORDERED: diphenhydrAMINE HCL 25 MG CAPSULE (FP) PO ONE ×2 (10:42→23:07)
[2018-01-22] MEDS: NICOTINE 21 MG/24 HOURS TOPICAL PATCH TD SCH (10:44)
[2018-01-22] MEDS: ACETAMINOPHEN 325 MG TABLET (FP) PO PRN (11:40)
--- NOTE | 2018-01-22 16:24 | PN ---
[facility] CIWA - CIWA Score Nausea/Vomitin-No Nausea/No Vomiting Muscle Tremors: 3 Anxiety: 5 Agitation: 4-Moderately Restless Paroxysmal Sweats: 3 Orientation: 0-Oriented Tacttile Disturbances: 3-Moderate Itch/Numb/Burn Auditory Disturbances: 0-None Visual Disturbances: 0-None Headache: 0-None Present CIWA-Ar Total Score: 18 BHS COWS - Scale Resting Pulse: 1= [place] 81-100 Sweatin= Chills/Flushing Restless Observation: 1= Difficult to Sit Still Pupil Size: 0= Normal to Room Light Bone or Joint Aches: 2= Severe Diffuse Aches Runny Nose/ Eye Tearin= None GI Upset > 30mins: 0= None Tremor Observation of Outstretched Hands: 2= Slight Tremor Visible Yawning Observation: 0= None Anxiety or Irritability: 4=Extreme Anxiety Goose Flesh Skin: 3=Piloerection COWS Score: 14 BHS Progress Note (SOAP) Subjective: Tremors, Anxious, Body Aches, Interrupted Sleep. Objective: PATIENT A & O X 3, OBSERVED AMBULATING ON UNIT. NO ACUTE DISTRESS. 01/22/18 16:20 Vital Signs Temperature 97.7 F 01/22/18 14:10 Pulse Rate 82 01/22/18 14:10 Respiratory Rate 18 01/22/18 14:10 Blood Pressure 162/91 01/22/18 14:10 O2 Sat by Pulse Oximetry (%) Laboratory Tests 01/21/18 01/21/18 01/21/18 15:00 15:47 15:47 WBC 5.1 RBC 4.45 Hgb 11.0 L Hct 33.6 L MCV 75.4 L MCH 24.7 L MCHC 32.7 RDW 20.1 H Plt Count 593 H MPV 7.5 Sodium Potassium Chloride Carbon Dioxide Anion Gap BUN Creatinine Creat Clearance w eGFR Random Glucose Calcium Total Bilirubin AST ALT Alkaline Phosphatase Total Protein Albumin Urine Color Urine Appearance Urine pH Ur Specific [place] Urine Protein Urine Glucose (UA) Urine Ketones Urine Blood Urine Nitrite Urine Bilirubin Urine Urobilinogen Ur Leukocyte Esterase Urine WBC (Auto) Urine RBC (Auto) Ur Epithelial Cells Urine Bacteria Urine Mucus RPR Titer Nonreactive HIV 1&2 Antibody Screen Negative HIV P24 Antigen Negative 01/21/18 01/21/18 15:47 22:50 WBC RBC Hgb Hct MCV MCH MCHC RDW Plt Count MPV Sodium 137 Potassium 4.1 Chloride 102 Carbon Dioxide 25 Anion Gap 10 BUN 27 H D Creatinine 2.4 H D Creat Clearance w eGFR 28.80 Random Glucose 72 L D Calcium 8.8 Total Bilirubin 0.4 D AST 13 L D ALT 7 L D Alkaline Phosphatase 132 H Total Protein 7.6 Albumin 3.7 Urine Color Yellow Urine Appearance Turbid Urine pH 5.0 Ur Specific [place] 1.024 Urine Protein 2+ H Urine Glucose (UA) Negative Urine Ketones Negative Urine Blood Negative Urine Nitrite Negative Urine Bilirubin Negative Urine Urobilinogen Negative Ur Leukocyte Esterase Negative Urine WBC (Auto) 2 Urine RBC (Auto) <1 Ur Epithelial Cells Rare Urine Bacteria Rare Urine Mucus Rare RPR Titer HIV 1&2 Antibody Screen HIV P24 Antigen labs noted. Assessment: 01/22/18 16:21 WITHDRAWAL SYMPTOMS. Plan: CONTINUE DETOX. [facility] TOMORROW AM FOR ADMISSION RENAL ABNORMALITIES. D/C MAGNESIUM-CONTAINING MEDS. AND IBUPROFEN.
[2018-01-22] MEDS ORDERED: diphenhydrAMINE HCL 50 MG CAPSULE PO SCH (18:00)
[2018-01-22] MEDS: THIAMINE HCL 100 MG TABLET (FP) PO SCH (22:22)
[2018-01-22] MEDS: ZOLPIDEM TARTRATE 10 MG TABLET (PARK CARE ONLY) PO SCH (22:23)
[2018-01-22] MEDS: traZODone HCL 50 MG TABLET (FP) PO SCH (22:23)
[2018-01-22] MEDS: AMMONIUM LACTATE 12% LOTION 225 GM BOTTLE TP SCH (22:28)
[2018-01-22] MEDS: CLOTRIMAZOLE 1% CREAM 15 GM TUBE TP SCH (22:30)
[2018-01-23] MEDS: chlordiazePOXIDE HCL 25 MG CAPSULE PO SCH ×2 (06:28→10:53)
[2018-01-23] MEDS: GABAPENTIN 400 MG CAPSULE (FP) PO SCH ×3 (06:28→22:20)
[2018-01-23] MEDS: PANTOPRAZOLE 40 MG TABLET (FP) PO SCH (06:29)
[2018-01-23] MEDS: PRENATAL VITAMINS W/ FOLIC ACID TABLET (FP) PO SCH (10:47)
[2018-01-23] MEDS: amLODIPine BESYLATE 10 MG TABLET (FP) PO SCH (10:47)
[2018-01-23] MEDS: CARVEDILOL 25 MG TABLET (FP) PO SCH ×2 (10:47→22:21)
[2018-01-23] MEDS: ESCITALOPRAM OXALATE 20 MG TABLET (FP) PO SCH (10:47)
[2018-01-23] MEDS: METHADONE HCL 5 MG TABLET (FOR DETOX USE ONLY) PO SCH (10:47)
[2018-01-23] MEDS: CLOTRIMAZOLE 1% CREAM 15 GM TUBE TP SCH ×2 (10:48→22:21)
[2018-01-23] MEDS: AMMONIUM LACTATE 12% LOTION 225 GM BOTTLE TP SCH ×2 (10:48→22:22)
[2018-01-23] MEDS: ASPIRIN 81 MG CHEWABLE TABLETS PO SCH (10:48)
[2018-01-23] MEDS: NICOTINE 21 MG/24 HOURS TOPICAL PATCH TD SCH (10:48)
[2018-01-23] MEDS: ACETAMINOPHEN 325 MG TABLET (FP) PO PRN ×2 (11:33→23:33)
--- NOTE | 2018-01-23 13:44 | PN ---
S CIWA - CIWA Score Nausea/Vomitin Muscle Tremors: 3 Anxiety: 4-Mod. Anxious/Guarded Agitation: 4-Moderately Restless Paroxysmal Sweats: 3 Orientation: 0-Oriented Tacttile Disturbances: 1-Very Mild Itch/Numbness Auditory Disturbances: 0-None Visual Disturbances: 0-None Headache: 0-None Present CIWA-Ar Total Score: 18 BHS COWS - Scale Resting Pulse: 1= [place] 81-100 Sweatin= Chills/Flushing Restless Observation: 3= Extraneous Movement Pupil Size: 0= Normal to Room Light Bone or Joint Aches: 2= Severe Diffuse Aches Runny Nose/ Eye Tearin= Runny Nose/Eyes GI Upset > 30mins: 2= Nausea/Diarrhea Tremor Observation of Outstretched Hands: 2= Slight Tremor Visible Yawning Observation: 0= None Anxiety or Irritability: 2=Irritable/Anxious Goose Flesh Skin: 0=Smooth Skin COWS Score: 15 S Progress Note (SOAP) Subjective: diarrhea, interrupted sleep, anxious, sweating Objective: 01/23/18 13:42 Last Vital Signs Temp Pulse Resp BP Pulse Ox 97.6 F 96 H 20 129/80 01/23/18 13:23 01/23/18 13:23 01/23/18 13:23 01/23/18 13:23 Laboratory Tests 01/21/18 01/21/18 01/21/18 15:00 15:47 15:47 WBC 5.1 RBC 4.45 Hgb 11.0 L Hct 33.6 L MCV 75.4 L MCH 24.7 L MCHC 32.7 RDW 20.1 H Plt Count 593 H MPV 7.5 Sodium Potassium Chloride Carbon Dioxide Anion Gap BUN Creatinine Creat Clearance w eGFR Random Glucose Calcium Total Bilirubin AST ALT Alkaline Phosphatase Total Protein Albumin Urine Color Urine Appearance Urine pH Ur Specific [place] Urine Protein Urine Glucose (UA) Urine Ketones Urine Blood Urine Nitrite Urine Bilirubin Urine Urobilinogen Ur Leukocyte Esterase Urine WBC (Auto) Urine RBC (Auto) Ur Epithelial Cells Urine Bacteria Urine Mucus RPR Titer Nonreactive HIV 1&2 Antibody Screen Negative HIV P24 Antigen Negative 01/21/18 01/21/18 15:47 22:50 WBC RBC Hgb Hct MCV MCH MCHC RDW Plt Count MPV Sodium 137 Potassium 4.1 Chloride 102 Carbon Dioxide 25 Anion Gap 10 BUN 27 H D Creatinine 2.4 H D Creat Clearance w eGFR 28.80 Random Glucose 72 L D Calcium 8.8 Total Bilirubin 0.4 D AST 13 L D ALT 7 L D Alkaline Phosphatase 132 H Total Protein 7.6 Albumin 3.7 Urine Color Yellow Urine Appearance Turbid Urine pH 5.0 Ur Specific [place] 1.024 Urine Protein 2+ H Urine Glucose (UA) Negative Urine Ketones Negative Urine Blood Negative Urine Nitrite Negative Urine Bilirubin Negative Urine Urobilinogen Negative Ur Leukocyte Esterase Negative Urine WBC (Auto) 2 Urine RBC (Auto) <1 Ur Epithelial Cells Rare Urine Bacteria Rare Urine Mucus Rare RPR Titer HIV 1&2 Antibody Screen HIV P24 Antigen Labs noted: MACARENA, proteinuria Assessment: 01/23/18 13:42 Withdrawal symptoms Noted with MACARENA and proteinuria Plan: Continue detox MACARENA: encouraged to drink lots of water due to dehydration (water pitcher ordered ), repeat BMP Proteinuria: encouraged to drink more water, repeat UA
[2018-01-23] MEDS: chlordiazePOXIDE 5 MG CAPSULE PO SCH ×2 (18:42→22:20)
--- NOTE | 2018-01-23 20:38 | EKG ---
Test Reason : Blood Pressure : / mmHG Vent. Rate : 083 BPM Atrial Rate : 083 BPM P-R Int : 164 ms QRS Dur : 088 ms QT Int : 410 ms P-R-T Axes : 075 052 030 degrees QTc Int : 481 ms NORMAL SINUS RHYTHM POSSIBLE LEFT ATRIAL ENLARGEMENT LEFT VENTRICULAR HYPERTROPHY PROLONGED QT ABNORMAL ECG WHEN COMPARED WITH ECG OF 19-JAN-2017 14:48, NO SIGNIFICANT CHANGE WAS FOUND Confirmed by DELBERT PATEL MD ([id number]) on 01/23/2018 8:38:24 PM Referred By: Confirmed By:DELBERT PATEL MD
[2018-01-23] MEDS: ZOLPIDEM TARTRATE 10 MG TABLET (PARK CARE ONLY) PO SCH (22:20)
[2018-01-23] MEDS: traZODone HCL 50 MG TABLET (FP) PO SCH (22:20)
[2018-01-23] MEDS: THIAMINE HCL 100 MG TABLET (FP) PO SCH (22:20)
[2018-01-24] MEDS: chlordiazePOXIDE 5 MG CAPSULE PO SCH ×2 (07:14→11:59)
[2018-01-24] MEDS: GABAPENTIN 400 MG CAPSULE (FP) PO SCH ×2 (07:17→14:05)
[2018-01-24] MEDS: PANTOPRAZOLE 40 MG TABLET (FP) PO SCH (07:18)
[2018-01-24 10:18] LABS: CHLORIDE 108 mmol/L (98-107); POTASSIUM 4.8 mmol/L (3.5-5.1); SODIUM 138 mmol/L (136-145)
[2018-01-24 10:41] LABS: ALBUMIN 2.7 g/dl (3.4-5.0); ALK PHOS 108 U/L (45-117); ANION GAP 8 (8-16); BILIRUBIN,DIRECT < 0.2 mg/dL (0.0-0.2); BILIRUBIN,TOTAL 0.3 mg/dL (0.2-1.0); BLOOD UREA NITROGEN 40 mg/dL (7-18); CO2 22 mmol/L (21-32); CREATININE 1.9 mg/dL (0.7-1.3); GLUCOSE,RANDOM 94 mg/dL (74-106); SGOT/AST 16 U/L (15-37); SGPT/ALT 7 U/L (12-78); TOT PROT 6.1 g/dl (6.4-8.2)
--- NOTE | 2018-01-24 12:03 | PN ---
BHS Progress Note (SOAP) Subjective: Shakes sweats sleep disturbance Objective: 01/24/18 11:51 Sleeping but arousable Vital Signs Temperature 97.3 F L 01/24/18 09:59 Pulse Rate 92 H 01/24/18 09:59 Respiratory Rate 16 03 09:59 Blood Pressure 140/90 01/24/18 09:59 O2 Sat by Pulse Oximetry (%) Laboratory Last Values WBC 5.1 K/mm3 (4.0-10.0) 01/21/18 15:47 RBC 4.45 M/mm3 (4.00-5.60) 01/21/18 15:47 Hgb 11.0 GM/dL (11.7-16.9) L 01/21/18 15:47 Hct 33.6 % (35.4-49) L 01/21/18 15:47 MCV 75.4 fl (80-96) L 01/21/18 15:47 MCH 24.7 pg (25.7-33.7) L 01/21/18 15:47 MCHC 32.7 g/dl (32.0-35.9) 01/21/18 15:47 RDW 20.1 % (11.9-15.9) H 01/21/18 15:47 Plt Count 593 K/MM3 (134-434) H 01/21/18 15:47 MPV 7.5 fl (7.5-11.1) 01/21/18 15:47 Sodium 138 mmol/L (136-145) 01/24/18 07:00 Potassium 4.8 mmol/L (3.5-5.1) 01/24/18 07:00 Chloride 108 mmol/L (98-107) H 01/24/18 07:00 Carbon Dioxide 22 mmol/L (21-32) 01/24/18 07:00 Anion Gap 8 (8-16) 01/24/18 07:00 BUN 40 mg/dL (7-18) H D 01/24/18 07:00 Creatinine 1.9 mg/dL (0.7-1.3) H D 01/24/18 07:00 Creat Clearance w eGFR 28.80 (>60) 01/21/18 15:47 Random Glucose 94 mg/dL (74-106) D 01/24/18 07:00 Calcium 8.0 mg/dL (8.5-10.1) L 01/24/18 07:00 Total Bilirubin 0.3 mg/dL (0.2-1.0) D 01/24/18 07:00 Direct Bilirubin < 0.2 mg/dL (0.0-0.2) 01/24/18 07:00 AST 16 U/L (15-37) D 01/24/18 07:00 ALT 7 U/L (12-78) L 01/24/18 07:00 Alkaline Phosphatase 108 U/L (45-117) 01/24/18 07:00 Total Protein 6.1 g/dl (6.4-8.2) L 01/24/18 07:00 Albumin 2.7 g/dl (3.4-5.0) L D 01/24/18 07:00 Urine Color Yellow 01/21/18 22:50 Urine Appearance Turbid 01/21/18 22:50 Urine pH 5.0 (5.0-8.0) 01/21/18 22:50 Ur Specific [place] 1.024 (1.001-1.035) 01/21/18 22:50 Urine Protein 2+ (NEGATIVE) H 01/21/18 22:50 Urine Glucose (UA) Negative (NEGATIVE) 01/21/18 22:50 Urine Ketones Negative (NEGATIVE) 01/21/18 22:50 Urine Blood Negative (NEGATIVE) 01/21/18 22:50 Urine Nitrite Negative (NEGATIVE) 01/21/18 22:50 Urine Bilirubin Negative (NEGATIVE) 01/21/18 22:50 Urine Urobilinogen Negative mg/dL (0.2-1.0) 01/21/18 22:50 Ur Leukocyte Esterase Negative (NEGATIVE) 01/21/18 22:50 Urine WBC (Auto) 2 /hpf (3-5) 01/21/18 22:50 Urine RBC (Auto) <1 /hpf (0-3) 01/21/18 22:50 Ur Epithelial Cells Rare /HPF (FEW) 01/21/18 22:50 Urine Bacteria Rare /hpf (NONE SEEN) 01/21/18 22:50 Urine Mucus Rare 01/21/18 22:50 RPR Titer Nonreactive (NONREACTIVE) 01/21/18 15:47 HIV 1&2 Antibody Screen Negative 01/21/18 15:00 HIV P24 Antigen Negative 01/21/18 15:00 labs noted Assessment: 01/24/18 12:03 withdrawal sx Plan: increase hydration continue detox
[2018-01-24] MEDS: METHADONE HCL 5 MG TABLET (FOR DETOX USE ONLY) PO SCH (12:19)
[2018-01-24] MEDS: CARVEDILOL 25 MG TABLET (FP) PO SCH ×2 (12:20→22:46)
[2018-01-24] MEDS: amLODIPine BESYLATE 10 MG TABLET (FP) PO SCH (12:20)
[2018-01-24] MEDS: ESCITALOPRAM OXALATE 20 MG TABLET (FP) PO SCH (12:20)
[2018-01-24] MEDS: ASPIRIN 81 MG CHEWABLE TABLETS PO SCH (12:20)
[2018-01-24] MEDS: NICOTINE 21 MG/24 HOURS TOPICAL PATCH TD SCH (12:21)
[2018-01-24] MEDS: PRENATAL VITAMINS W/ FOLIC ACID TABLET (FP) PO SCH (12:21)
[2018-01-24] MEDS: AMMONIUM LACTATE 12% LOTION 225 GM BOTTLE TP SCH ×2 (12:22→22:49)
[2018-01-24] MEDS: CLOTRIMAZOLE 1% CREAM 15 GM TUBE TP SCH ×2 (12:22→22:50)
[2018-01-24] MEDS ORDERED: ESCITALOPRAM OXALATE 10 MG TABLET (FP) PO SCH (16:00)
[2018-01-24] MEDS: chlordiazePOXIDE HCL 10 MG CAPSULE PO SCH ×2 (17:54→22:46)
--- NOTE | 2018-01-24 19:34 | PN ---
[facility] Progress Note Note: Psychiatry Attending's note : Discussed with FORKLIFT SUPERVISOR Kameron. Issue : patient is sedated. Chart reviewed.Patient seen at bedside. Found asleep.Easily awakened.Answered to his name. Oriented to person (recognizes aligner typewriter) and place ([facility]). Feels tired.Confined to bed due to unsteady gait. Trazodone,lexapro,zolpidem are discontinued. Opioid / alcohol detox protocol : caution. Close observation. Psychiatry will follow.
[2018-01-24] MEDS: THIAMINE HCL 100 MG TABLET (FP) PO SCH (22:46)
[2018-01-25] MEDS: chlordiazePOXIDE HCL 10 MG CAPSULE PO SCH ×2 (05:15→10:32)
[2018-01-25] MEDS: PANTOPRAZOLE 40 MG TABLET (FP) PO SCH (05:16)
[2018-01-25 09:59] VITALS: BP 150/77; PULSE 92; TEMP 96.2
[2018-01-25] MEDS ORDERED: METHADONE HCL 10 MG TABLET (FOR DETOX USE ONLY) PO SCH (10:00)
[2018-01-25 10:03] LABS: URINE APPEARANCE CLEAR; URINE BILIRUBIN NEGATIVE (NEGATIVE); URINE BLOOD NEGATIVE (NEGATIVE); URINE COLOR YELLOW; URINE GLUCOSE (UA) NEGATIVE (NEGATIVE); URINE KETONE NEGATIVE (NEGATIVE); URINE LEUK ESTERASE NEGATIVE (NEGATIVE); URINE NITRITE NEGATIVE (NEGATIVE); URINE UROBILINOGEN NEGATIVE mg/dL (0.2-1.0)
[2018-01-25 10:06] LABS: URINE PROTEIN 2+ (NEGATIVE)
[2018-01-25 10:07] LABS: URINE HYALINE CAST 2 /lpf; URINE MUCUS RARE
[2018-01-25 10:17] LABS: BASO % 0.6 % (0-2.0); EOS % 4.4 % (0-4.5); HEMATOCRIT 28.2 % (35.4-49); HEMOGLOBIN 8.7 GM/dL (11.7-16.9); MCH 24.1 pg (25.7-33.7); MCHC 30.9 g/dl (32.0-35.9); MEAN CELL VOLUME 77.9 fl (80-96); MEAN PLT VOLUME 7.5 fl (7.5-11.1); MONO % 12.4 % (3.8-10.2); NEUT % 68.6 % (42.8-82.8); PLATELET COUNT 522 K/MM3 (134-434); RBC 3.62 M/mm3 (4.00-5.60); WHITE BLOOD COUNT 12.1 K/mm3 (4.0-10.0)
[2018-01-25 10:18] LABS: ALBUMIN 2.5 g/dl (3.4-5.0); ANION GAP 11 (8-16); BLOOD UREA NITROGEN 45 mg/dL (7-18); CHLORIDE 108 mmol/L (98-107); CO2 25 mmol/L (21-32); GLUCOSE,RANDOM 110 mg/dL (74-106); POTASSIUM 4.9 mmol/L (3.5-5.1); SGOT/AST 15 U/L (15-37); SGPT/ALT 7 U/L (12-78); SODIUM 144 mmol/L (136-145)
[2018-01-25 10:20] LABS: ALK PHOS 108 U/L (45-117); BILIRUBIN,TOTAL 0.1 mg/dL (0.2-1.0); CALCIUM 8.5 mg/dL (8.5-10.1); CREATININE 2.2 mg/dL (0.7-1.3); TOT PROT 6.2 g/dl (6.4-8.2)
[2018-01-25] MEDS: PRENATAL VITAMINS W/ FOLIC ACID TABLET (FP) PO SCH (10:32)
[2018-01-25] MEDS: CARVEDILOL 25 MG TABLET (FP) PO SCH ×2 (10:32→23:16)
[2018-01-25] MEDS: amLODIPine BESYLATE 10 MG TABLET (FP) PO SCH (10:32)
[2018-01-25] MEDS: ASPIRIN 81 MG CHEWABLE TABLETS PO SCH (10:32)
[2018-01-25] MEDS: CLOTRIMAZOLE 1% CREAM 15 GM TUBE TP SCH ×2 (10:33→23:18)
[2018-01-25] MEDS: NICOTINE 21 MG/24 HOURS TOPICAL PATCH TD SCH (10:33)
[2018-01-25] MEDS: AMMONIUM LACTATE 12% LOTION 225 GM BOTTLE TP SCH ×2 (10:33→23:17)
--- NOTE | 2018-01-25 11:10 | PN ---
Psychiatric Progress Note Vital Signs: Vital Signs Period Temp Pulse Resp BP Sys/Parsons Pulse Ox Last 24 Hr 96.2 F-98.2 F 84-92 18-20 105-150/63-77 Date of Session: 01/25/18 Chief Complaint:: " I feel much better today." Follow-up visit. HPI: Follow-up visit for this patient who presented with marked sedation over past 36 hours.Mr Damian is currently undergoing detoxification treatment for alcohol,cocaine and opiate dependence. ROS: Improved : patient is ambulatory with cane,steady and independent.Cognition has remarkably ameliorated.Alert and fully oriented.Visible in corridors.Sociable.Somatic complaint : joint pain. Current Medications: Active Medications Generic Name Dose Route Start Last Admin Trade Name Freq PRN Reason Stop Dose Admin Acetaminophen 650 mg 01/21/18 14:19 01/23/18 23:33 Tylenol - PO 650 mg Q4H PRN Administration FEVER Amlodipine Besylate 10 mg 01/22/18 10:00 01/25/18 10:32 Norvasc - PO 10 mg DAILY MAGDALENA Administration Aspirin 81 mg 01/22/18 10:00 01/25/18 10:32 Asa - PO 81 mg DAILY MAGDALENA Administration Carvedilol 25 mg 01/21/18 22:00 01/25/18 10:32 Coreg - PO 25 mg BID MAGDALENA Administration Clotrimazole 1 applic 01/22/18 22:00 01/25/18 10:33 Lotrimin 1% Cream - TP 1 applic BID MAGDALENA Administration Colloidal Oatmeal 1 applic 01/22/18 10:23 Aveeno Soap - TP DAILY PRN HYGEINE Eucalyptus/Menthol/Phenol/Sorbitol 1 each 01/21/18 14:19 Cepastat Lozenge - MM Q4H PRN SORE THROAT Guaifenesin 10 ml 01/21/18 14:19 Robitussin Dm - PO Q6H PRN COUGH Lactic Acid 1 applic 01/22/18 22:00 01/25/18 10:33 Lac-Hydrin 12 TP 1 applic BID MAGDALENA Administration Loperamide HCl 4 mg 01/21/18 14:19 Imodium - PO Q6H PRN DIARRHEA Methadone HCl 5 mg 01/26/18 06:00 Dolophine - PO 01/26/18 06:01 DAILY@0600 MAGDALENA Nicotine 21 mg 01/22/18 10:00 01/25/18 10:33 Nicoderm Patch - TD Not Given DAILY MAGDALENA Nicotine Polacrilex 4 mg 01/21/18 14:19 Nicorette Gum - BUC Q2H PRN NICOTINE REPLACEMENT RX Pantoprazole Sodium 40 mg 01/23/18 06:00 01/25/18 05:16 Protonix - PO 40 mg DAILY@0600 MAGDALENA Administration Multivit/Folic Acid/Iron 1 tab 01/22/18 10:00 01/25/18 10:32 Vitamins (Sjr) - PO 1 tab DAILY MAGDALENA Administration Thiamine HCl 100 mg 01/21/18 22:00 01/24/18 22:46 Vitamin B1 - PO 100 mg HS MAGDALENA Administration Medication(s) Change(s): Gabapentin,lexapro,trazodone have been discontinued ( temporarily).Detox protocol (librium + methadone) has been cautiously modified. Current Side Effect: Yes (sedation,observed on 01/24/18,was likely medication- induced) Lab tests ordered: Yes (comprehensive metabolic panel / CBC : repeat) Lab tests reviewed: Yes (Anemia and abnormal renal function.Noted) Provider note:: Nursing notes : reviewed and appreciated.Case discussed with COLLAR FELLER Shavon and counselor Anuj.Chart reviewed.Labs discussed.Met with the patient at bedside.Found to be neatly groomed,jovial,pleasant on approach and visibly motivated for treatment." I would like to go to rehab after my detox, preferably here at [facility]." Mr Damian is cognitively sound,well controlled,at ease with his surroundings,mobile (clearly focused on maintenance of his independence) and goal-directed.Took a shower this morning (without staff's assistance),ate breakfast,walks independently to nurses's station to get his medications (with cane) and went about his daily routine (strolls in the hallways with / without cane, socialization, attendance to social gatherings and regular presence at meals in the dining area with others).Performance observed by this typewriter repairer (today).Patient exhibits good communication skills.Maintains adequate eye contact and appropriate body movements.Sensorium remains clear.Mr Damian shows NO evidence of a cognitive impairment at time of this examination.Clinically euthymic and functioning at his baseline.Ready for his transition to rehabilitation treatment.Arrangements in progress.Medical status is currently monitored by LALIT Sands (in contact with the medical attendig,Dr Gibbs).MSE completed.Patient is not a danger to self or others.Doing well WITHOUT psychotropic medications (gabapentin,lexapro,trazodone ,ambien).These medications will be restarted (at much lower doses on the rehabilitation unit).Psychiatry will follow. Total face to face time:: 35 Mental Status Exam - Mental Status Exam Alert and Oriented to: Time, Place, Person Cognitive Function: Good Patient Appearance: Well Groomed Mood: Hopeful, Euthymic Affect: Appropriate, Normal Range Patient Behavior: Talkative, Appropriate, Cooperative Speech Pattern: Clear, Appropriate Voice Loudness: Normal Thought Process: Goal Oriented Thought Disorder: Not Present Hallucinations: Denies Suicidal Ideation: Denies Homicidal Ideation: Denies Insight/Judgement: Fair (wants to stay at [facility] for rehab) Sleep: Fair Appetite: Good (empty foodtray seen at bedside) Gait/Station: Other (patient moves around independently with cane) Psychiatric Treatment Plan - Problem List (1) Alcohol dependence with uncomplicated withdrawal Comment: . (2) Opioid dependence Qualifiers: Substance use status: uncomplicated Qualified Code(s): F11.20 - Opioid dependence, uncomplicated Comment: . (3) Cocaine dependence Comment: . (4) Nicotine dependence Qualifiers: Nicotine product type: cigarettes Substance use status: uncomplicated Qualified Code(s): F17.210 - Nicotine dependence, cigarettes, uncomplicated Comment: . (5) Drug-induced mood disorder Comment: . (6) Depressive disorder Comment: .As per self-report and existing records.On medications.OPD care at [facility]. (7) Insomnia Comment: .
--- NOTE | 2018-01-25 13:40 | PN ---
S Progress Note (SOAP) Subjective: Interrupted Sleep, Tremors, Stomach Cramping, Diarrhea, Body Aches. Objective: PATIENT A & O X 3, OBSERVED AMBULATING ON UNIT WITH ASSISTANCE OF A CANE. NO ACUTE DISTRESS. 01/25/18 13:35 Vital Signs Temperature 96.2 F L 01/25/18 09:58 Pulse Rate 92 H 01/25/18 09:58 Respiratory Rate 18 01/25/18 09:58 Blood Pressure 150/77 01/25/18 09:58 O2 Sat by Pulse Oximetry (%) Laboratory Tests 01/21/18 01/21/18 01/21/18 15:00 15:47 15:47 WBC 5.1 RBC 4.45 Hgb 11.0 L Hct 33.6 L MCV 75.4 L MCH 24.7 L MCHC 32.7 RDW 20.1 H Plt Count 593 H MPV 7.5 Neutrophils % Lymphocytes % Monocytes % Eosinophils % Basophils % Sodium Potassium Chloride Carbon Dioxide Anion Gap BUN Creatinine Creat Clearance w eGFR Random Glucose Calcium Total Bilirubin Direct Bilirubin AST ALT Alkaline Phosphatase Total Protein Albumin Urine Color Urine Appearance Urine pH Ur Specific [place] Urine Protein Urine Glucose (UA) Urine Ketones Urine Blood Urine Nitrite Urine Bilirubin Urine Urobilinogen Ur Leukocyte Esterase Urine WBC (Auto) Urine RBC (Auto) Ur Epithelial Cells Urine Bacteria Hyaline Casts Urine Mucus RPR Titer Nonreactive HIV 1&2 Antibody Screen Negative HIV P24 Antigen Negative 01/21/18 01/21/18 01/24/18 15:47 22:50 07:00 WBC RBC Hgb Hct MCV MCH MCHC RDW Plt Count MPV Neutrophils % Lymphocytes % Monocytes % Eosinophils % Basophils % Sodium 137 138 Potassium 4.1 4.8 Chloride 102 108 H Carbon Dioxide 25 22 Anion Gap 10 8 BUN 27 H D 40 H D Creatinine 2.4 H D 1.9 H D Creat Clearance w eGFR 28.80 Random Glucose 72 L D 94 D Calcium 8.8 8.0 L Total Bilirubin 0.4 D 0.3 D Direct Bilirubin < 0.2 AST 13 L D 16 D ALT 7 L D 7 L Alkaline Phosphatase 132 H 108 Total Protein 7.6 6.1 L Albumin 3.7 2.7 L D Urine Color Yellow Urine Appearance Turbid Urine pH 5.0 Ur Specific [place] 1.024 Urine Protein 2+ H Urine Glucose (UA) Negative Urine Ketones Negative Urine Blood Negative Urine Nitrite Negative Urine Bilirubin Negative Urine Urobilinogen Negative Ur Leukocyte Esterase Negative Urine WBC (Auto) 2 Urine RBC (Auto) <1 Ur Epithelial Cells Rare Urine Bacteria Rare Hyaline Casts Urine Mucus Rare RPR Titer HIV 1&2 Antibody Screen HIV P24 Antigen 01/25/18 01/25/18 01/25/18 07:00 07:00 08:15 WBC 12.1 H D RBC 3.62 L Hgb 8.7 L D Hct 28.2 L D MCV 77.9 L MCH 24.1 L MCHC 30.9 L RDW 22.0 H Plt Count 522 H MPV 7.5 Neutrophils % 68.6 Lymphocytes % 14.0 Monocytes % 12.4 H Eosinophils % 4.4 Basophils % 0.6 Sodium 144 Potassium 4.9 Chloride 108 H Carbon Dioxide 25 Anion Gap 11 BUN 45 H Creatinine 2.2 H Creat Clearance w eGFR 31.84 Random Glucose 110 H Calcium 8.5 Total Bilirubin 0.1 L D Direct Bilirubin AST 15 ALT 7 L Alkaline Phosphatase 108 Total Protein 6.2 L Albumin 2.5 L Urine Color Yellow Urine Appearance Clear Urine pH 5.0 Ur Specific [place] 1.017 Urine Protein 2+ H Urine Glucose (UA) Negative Urine Ketones Negative Urine Blood Negative Urine Nitrite Negative Urine Bilirubin Negative Urine Urobilinogen Negative Ur Leukocyte Esterase Negative Urine WBC (Auto) 1 Urine RBC (Auto) <1 Ur Epithelial Cells Urine Bacteria Hyaline Casts 2 Urine Mucus Rare RPR Titer HIV 1&2 Antibody Screen HIV P24 Antigen LABS NOTED. Assessment: 01/25/18 13:36 WITHDRAWAL SYMPTOMS. Plan: CONTINUE DETOX.
--- NOTE | 2018-01-25 15:55 | PN ---
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 Results inconclusive for whether or not acute pathology is present. Results of Repeat CBC and repeat CMP noted. Leukocytosis, worsening Anemia noted, and abnormal renal lab values noted. Patient denies SOB, dizziness, and chest pain. Patient denies any known history of Respiratory Disease, Immune Disease, Hematologic Disease, or Bleeding disorder. Lungs sounds auscultated clear and equal bilaterally. Patient A & O X 3, observed ambulating on unit with assistance of a cane, in No acute distress. Patient intent on going to [facility] tomorrow after discharge from Detox. Report given to Dr. Judge at [facility]. Patient to be taken to [facility] for further medical evaluation and for medical clearance prior to consideration for admission to Rehab after discharge from Detox. Chelsea Lopez NP
--- NOTE | 2018-01-25 19:47 | PN ---
Teaching Attending Note Name of Resident: Yusef Kimball ATTENDING PHYSICIAN STATEMENT I saw and evaluated the patient. I reviewed the resident's note and discussed the case with the resident. I agree with the resident's findings and plan as documented. SUBJECTIVE: 48 M with hx. of AAA, aortic stent, CHF, Opiod dependence (on Methadone,) From [address] [place] [address]. In Detox for heroin/etoh dependence. States he recently had + PPD, and + CXR findings. No hemoptysis, weight loss, or diaphoresis. Notes he had a prior + TB hx. and was treated with INH for 9 month in 1995. NO fever or chills. OBJECTIVE: Physical: VS: GEN: HEENT: CARD: RESP: ABD: EXT: CBCD WBC 12.1 K/mm3 (4.0-10.0) H D 01/25/18 07:00 RBC 3.62 M/mm3 (4.00-5.60) L 01/25/18 07:00 Hgb 8.7 GM/dL (11.7-16.9) L D 01/25/18 07:00 Hct 28.2 % (35.4-49) L D 01/25/18 07:00 MCV 77.9 fl (80-96) L 01/25/18 07:00 MCHC 30.9 g/dl (32.0-35.9) L 01/25/18 07:00 RDW 22.0 % (11.9-15.9) H 01/25/18 07:00 Plt Count 522 K/MM3 (134-434) H 01/25/18 07:00 MPV 7.5 fl (7.5-11.1) 01/25/18 07:00 CMP Sodium 144 mmol/L (136-145) 01/25/18 07:00 Potassium 4.9 mmol/L (3.5-5.1) 01/25/18 07:00 Chloride 108 mmol/L (98-107) H 01/25/18 07:00 Carbon Dioxide 25 mmol/L (21-32) 01/25/18 07:00 Anion Gap 11 (8-16) 01/25/18 07:00 BUN 45 mg/dL (7-18) H 01/25/18 07:00 Creatinine 2.2 mg/dL (0.7-1.3) H 01/25/18 07:00 Creat Clearance w eGFR 31.84 (>60) 01/25/18 07:00 Random Glucose 110 mg/dL (74-106) H 01/25/18 07:00 Calcium 8.5 mg/dL (8.5-10.1) 01/25/18 07:00 Total Bilirubin 0.1 mg/dL (0.2-1.0) L D 01/25/18 07:00 AST 15 U/L (15-37) 01/25/18 07:00 ALT 7 U/L (12-78) L 01/25/18 07:00 Alkaline Phosphatase 108 U/L (45-117) 01/25/18 07:00 Total Protein 6.2 g/dl (6.4-8.2) L 01/25/18 07:00 Albumin 2.5 g/dl (3.4-5.0) L 01/25/18 07:00 ASSESSMENT AND PLAN:
[2018-01-25] MEDS: THIAMINE HCL 100 MG TABLET (FP) PO SCH (23:18)
[2018-01-26] MEDS ORDERED: METHADONE HCL 5 MG TABLET (FOR DETOX USE ONLY) PO SCH (06:00)
== END 2018-01-25 23:41 | disposition short-term general hospital (02) | DRG 773 ==
LOC: YASAS 11:11 → Y3N 14:51
PROVIDERS: ADMIT Internal Medicine; ATTEND Internal Medicine
PROC: HZ2ZZZZ Detoxification Services for Substance Abuse Treatment (ICD-10-PCS; principal; 2018-01-21)
DX: F10.230 Alcohol dependence with withdrawal, uncomplicated (principal); F11.20 Opioid dependence, uncomplicated; F12.20 Cannabis dependence, uncomplicated; F17.210 Nicotine dependence, cigarettes, uncomplicated; F19.24 Other psychoactive substance dependence with psychoactive substance-induced mood disorder; F32.9 Major depressive disorder, single episode, unspecified; I50.9 Heart failure, unspecified; I10 Essential (primary) hypertension; M06.9 Rheumatoid arthritis, unspecified; D64.9 Anemia, unspecified; D72.829 Elevated white blood cell count, unspecified; E78.00 Pure hypercholesterolemia, unspecified; G47.00 Insomnia, unspecified; Z95.5 Presence of coronary angioplasty implant and graft; Z91.013 Allergy to seafood; Z96.642 Presence of left artificial hip joint; Z86.79 Personal history of other diseases of the circulatory system; Z59.0 Homelessness
CPT/HCPCS: 36415; 71046-TC-FY; 80048; 80053; 80076; 81003; 81015; 85025; 85027; 86593; 87389; 93005; 93010

== ENCOUNTER 2018-01-25 16:31 | Inpatient (IN) | payer BC ==
[2018-01-25 16:52] VITALS: BMI 24.3
--- NOTE | 2018-01-25 16:52 | PDOC ---
History of Present Illness - General Stated Complaint: ABNORMAL X RAY Time Seen by Provider: 01/25/18 16:40 - History of Present Illness Initial Comments: 01/25/18 16:47 48 yo M with h/o HTN, AAA, aortic stent placement, CHF, opioid dependence ( on methadone), in detox ( [address] [place] [address]) 2/2 heroin and alcohol dependence who presents with + PPD and CXR findings. Pt. arrives from [facility] after admission ( 01/21/18). Denies symtpoms. Denes F/C, CP, SOB, cough, hemoptysis, night sweats, wt. loss. CXR (01/25/18) reveals patchy opacification within R upper and L lower lobe suggesting possible acute vs. chronic changes. Last used Heroin ( 01/17/18). Tobacco use 1/2 ppd for 20-25 years. H/o TB treated with INH x 9 months in 1995. Denies F/C, N/V, CP, SOB, abdominal pain, urinary complaints, diarrhea, constipation, lightheadedness, weakness, sensory changes. Past History - Past Medical History Allergies/Adverse Reactions: Allergies Allergy/AdvReac Type Severity Reaction Status Date / Time fish derived Allergy Severe Hives Verified 01/24/18 15:31 shellfish derived Allergy Severe Hives Verified 01/24/18 15:31 tomato Allergy Severe Swelling Verified 01/21/18 14:12 No Known Drug Allergies Allergy Unknown Verified 01/21/18 15:05 SEAFOOD Allergy Severe Hives Uncoded 01/21/18 14:12 NKDA Allergy Uncoded 01/21/18 14:12 Home Medications: Ambulatory Orders Escitalopram Oxalate [Lexapro -] 20 mg PO DAILY #30 tablet 01/22/18 traZODone HCL [Desyrel -] 50 mg PO HS #30 tablet 01/22/18 Amlodipine Besylate [Norvasc -] 10 mg PO DAILY #30 tablet 01/24/18 Aspirin [ASA -] 81 mg PO DAILY #30 tab.chew 01/24/18 Carvedilol [Coreg -] 25 mg PO BID #60 tablet 01/24/18 Anemia: Yes (was on feosol) Asthma: No Cancer: No Cardiac Disorders: Yes (stent in the descending aorta because of aneurysm) CVA: No COPD: No CHF: Yes Dementia: No Diabetes: No GI Disorders: Yes (stomach ulcer/acid reflux) Disorders: No HTN: Yes Hypercholesterolemia: Yes (no meds) Kidney Stones: No Liver Disease: No Seizures: No Thyroid Disease: No - Surgical History Abdominal Surgery: No Appendectomy: No Cardiac Surgery: Yes (Stent in descending aorta) Cholecystectomy: No Lung Surgery: No Neurologic Surgery: No Orthopedic Surgery: Yes (left hip replacement, right knee/leg, right/arm/right small toe x2) - Reproductive History Testicular Surgery: No - Suicide/Smoking/Psychosocial Hx Smoking History: Current every day smoker Have you smoked in the past 12 months: Yes Number of Cigarettes Smoked Daily: 10 Cigars Per Day: 0 'Breaking Loose' booklet given: 01/21/18 Hx Alcohol Use: Yes Drug/Substance Use Hx: Yes Substance Use Type: Alcohol, Cocaine, Opiates Hx Substance Use Treatment: Yes Review of Systems - Review of Systems Comments:: 01/25/18 16:46 GENERAL/CONSTITUTIONAL: No fever or chills. No weakness. HEAD, EYES, EARS, NOSE AND THROAT: No change in vision. No ear pain or discharge. No sore throat.- CARDIOVASCULAR: No chest pain or shortness of breath RESPIRATORY: No cough, wheezing, or hemoptysis. GASTROINTESTINAL: No nausea, vomiting, diarrhea or constipation. GENITOURINARY: No dysuria, frequency, or change in urination. MUSCULOSKELETAL: No joint or muscle swelling or pain. No neck or back pain. SKIN: No rash NEUROLOGIC: No headache, vertigo, loss of consciousness, or change in strength/ sensation. ENDOCRINE: No increased thirst. No abnormal weight change HEMATOLOGIC/LYMPHATIC: No anemia, easy bleeding, or history of blood clots. ALLERGIC/IMMUNOLOGIC: No hives or skin allergy. *Physical Exam - Physical Exam Comments: GENERAL: Awake, alert, and fully oriented, in no acute distress HEAD: No signs of trauma, normocephalic, atraumatic EYES: PERRLA, EOMI, sclera anicteric, conjunctiva clear ENT: Hearing grossly normal, nares patent, oropharynx clear without exudates. Moist mucosa NECK: Normal ROM, supple, no lymphadenopathy, JVD, or masses LUNGS: No distress, speaks full sentences, clear to auscultation bilaterally HEART: Regular rate and rhythm, normal S1 and S2, no murmurs, rubs or gallops, peripheral pulses normal and equal bilaterally. EXTREMITIES : Normal inspection, Normal range of motion, no edema. No clubbing or cyanosis. NEUROLOGICAL: Cranial nerves II through XII grossly intact. Normal speech, normal gait, no focal sensorimotor deficits SKIN: Excorations on extremities. Warm, Dry, normal turgor, no rashes or lesions noted Medical Decision Making - Medical Decision Making 48 yo M with h/o HTN, AAA, aortic stent placement, CHF, opioid dependence ( on methadone), in detox ( [facility]) 2/2 heroin and alcohol dependence who arrives from [address] [place] [address] after admission ( 01/21/18) with recent +PPD and CXR ( 01/25/18) reveals patchy opacification within R upper and L lower lobe suggesting possible acute vs. chronic changes. No prior CXR to compare. Denies symptoms. Denies F/C, CP, SOB, cough, hemoptysis, night sweats, wt. loss. Last used Heroin ( 01/17/18). Tobacco use 1/2 ppd for 20-25 years. H/o TB treated with INH x 9 months in 1995. Denies F/C, N/V, CP, SOB, abdominal pain, urinary complaints, diarrhea, constipation, lightheadedness, weakness, sensory changes. HDS. Physical exam is unremarkable and hemdoynamically stable. Will evaluate for possible active vs. latent TB to medically clear patient. Will also evaluate for PNA. ED Course: 01/25/18 17:12 Dr. Fink answering service 01/25/18 17:[address] Fink will obtain CT CHEST for further TB evaluation. 01/25/18 18:58 CT Chest: Nonspecific pulmonary infiltrates which be on the basis of TB. WBC: 12.1 ( 5.1 on 01/21) H/H: 8.7 /28.2 ( 11/33.6 on (01/21/18) ) Per Dr. Fink pt. may have possible CAP. vs. possible aspiration vs. TB. Recommends getting sputum and PCR for TB. Recommends admission. Contact precautions. 01/25/18 20:08 Methadone 10 mg, Escitalapram 20 mg, Librium 10 mg. 01/25/18 20:09 Patient stable and informed of need for admission and tx. Admit to hospitalist med/surg Raúl. *DC/Admit/Observation/Transfer Diagnosis at time of Disposition: Pneumonia Qualifiers: Pneumonia type: due to unspecified organism Laterality: right Lung location: upper lobe of lung Qualified Code(s): J18.1 - Lobar pneumonia, unspecified organism - Discharge Dispostion Condition at time of disposition: Stable Admit: Yes - Referrals - Patient Instructions Additional Instructions: Please return to the emergency department with any new or worsening symptoms or concerns. Please follow up with your primary care physician within 72 hours. - Post Discharge Activity - Attestations Physician Attestion: 01/25/18 16:47 I attest to the information provided in this note.
--- NOTE | 2018-01-25 17:18 | PDOC ---
Attending Attestation - Resident Resident Name: Damien Steinerson - ED Attending Attestation I have performed the following: I have examined & evaluated the patient, The case was reviewed & discussed with the resident, I agree w/resident's findings & plan, Exceptions are as noted - HPI HPI: 01/25/18 17:16 48-year-old male was admitted to [facility] 2 days ago for heroin detox. Brought in by ambulance because he had a history of positive PPD and findings on the chest x-ray. He is asymptomatic and does not have fever, chills, coronary to cough at this time and denies any night sweats or weight loss. He states that he's had a positive PPD for many years and has already been treated with 9 months of [facility] 01/25/18 20:08 - Physicial Exam PE: 01/25/18 18:44 48 yo male in no acute distress sent for further evaluation of +ppd head ncat eyes misti eomi neck supple lungs no wheezing,no crackles appreciated cvs [id number] abd nontender ext no tenderness, no deformity skin no cellulitis,warm and dry neuro axox3, ambulatory psych appropriate 01/25/18 19:54 - Medical Decision Making 01/25/18 19:55 CAT scan of his chest did show bilateral patchy infiltrates in both upper and lower lobes. Case is discussed with infectious disease. Dr. Fink the patient will be admitted and have serial repeat sputum cultures to rule out TB. Patient currently is asymptomatic with no fever, chills or cough -he was given antibiotics initially for community-acquired pneumonia -pt to be admitted 01/25/18 20:09
[2018-01-25] MEDS ORDERED: AZITHROMYCIN IVPB 500 MG in DEXTROSE 5%-WATER - 250 ML IVPB ONE (19:18)
[2018-01-25] MEDS ORDERED: ESCITALOPRAM OXALATE 20 MG TABLET (FP) PO ONE (20:07)
[2018-01-25] MEDS ORDERED: traZODone HCL 50 MG TABLET (FP) PO ONE (20:07)
--- NOTE | 2018-01-25 20:20 | PN ---
Teaching Attending Note Name of Resident: Yusef Kimball ATTENDING PHYSICIAN STATEMENT I saw and evaluated the patient. I reviewed the resident's note and discussed the case with the resident. I agree with the resident's findings and plan as documented. SUBJECTIVE: 48 M with hx. of AAA, depression, aortic stent, L. Hip replacement, current smoker, CHF, Opiod dependence (on Methadone,) From [address] [place] [address]. In Detox for heroin/etoh dependence. States he recently had + PPD, and + CXR findings. No hemoptysis. Notes he had a prior + PPD hx. and was treated with INH for 9 month in 1995. NO fever or chills. States he has had weight loss unknown duration of time of about 30lbs. Also, notes diaphoresis for past 3 nights. No chest pain or pressure. No cough. No recent incarcarceration. OBJECTIVE: Physical: VS: Vital Signs Period Temp Pulse Resp BP Sys/Parsons Pulse Ox Last 24 Hr 98.9 F 81 17 85-133/55-60 97 GEN: NAD, resting in bed, AA0X3 HEENT: NCAT, PERRL, Throat without erythema or exudates CARD: RRR S1, S2 RESP: CTAB ABD: BSx4, NTD to palpation EXT: - C/C/E CBCD WBC 12.1 K/mm3 (4.0-10.0) H D 01/25/18 07:00 RBC 3.62 M/mm3 (4.00-5.60) L 01/25/18 07:00 Hgb 8.7 GM/dL (11.7-16.9) L D 01/25/18 07:00 Hct 28.2 % (35.4-49) L D 01/25/18 07:00 MCV 77.9 fl (80-96) L 01/25/18 07:00 MCHC 30.9 g/dl (32.0-35.9) L 01/25/18 07:00 RDW 22.0 % (11.9-15.9) H 01/25/18 07:00 Plt Count 522 K/MM3 (134-434) H 01/25/18 07:00 MPV 7.5 fl (7.5-11.1) 01/25/18 07:00 CMP Sodium 144 mmol/L (136-145) 01/25/18 07:00 Potassium 4.9 mmol/L (3.5-5.1) 01/25/18 07:00 Chloride 108 mmol/L (98-107) H 01/25/18 07:00 Carbon Dioxide 25 mmol/L (21-32) 01/25/18 07:00 Anion Gap 11 (8-16) 01/25/18 07:00 BUN 45 mg/dL (7-18) H 01/25/18 07:00 Creatinine 2.2 mg/dL (0.7-1.3) H 01/25/18 07:00 Creat Clearance w eGFR 31.84 (>60) 01/25/18 07:00 Random Glucose 110 mg/dL (74-106) H 01/25/18 07:00 Calcium 8.5 mg/dL (8.5-10.1) 01/25/18 07:00 Total Bilirubin 0.1 mg/dL (0.2-1.0) L D 01/25/18 07:00 AST 15 U/L (15-37) 01/25/18 07:00 ALT 7 U/L (12-78) L 01/25/18 07:00 Alkaline Phosphatase 108 U/L (45-117) 01/25/18 07:00 Total Protein 6.2 g/dl (6.4-8.2) L 01/25/18 07:00 Albumin 2.5 g/dl (3.4-5.0) L 01/25/18 07:00 CT CHEST: Non-specific bilateral pulmonary infiltertes which may be on the basis of TB, paraseptal emphysema, probable supraimposed centrilobar emphysema ( vs. sub cm, post-infectious, post-inflammatory blebs) mild non-specific mediastinal lymphadenopathy, athrosclerotic coronary artery calcification which are atleast moderate in degree, Endovascular aortic stent in place. EKG: PENDING Home Medications Medication Instructions Recorded Escitalopram Oxalate [Lexapro -] 20 mg PO DAILY #30 tablet 01/22/18 traZODone HCL [Desyrel -] 50 mg PO HS #30 tablet 01/22/18 Amlodipine Besylate [Norvasc -] 10 mg PO DAILY #30 tablet 01/24/18 Aspirin [ASA -] 81 mg PO DAILY #30 tab.chew 01/24/18 Carvedilol [Coreg -] 25 mg PO BID #60 tablet 01/24/18 A/P.) 48 M with hx. of AAA, aortic stent, current smoker, depression, L. Hip replacement, CHF, Opiod dependence (on Methadone,) From [address] [place] [address]. In Detox for heroin/etoh dependence. States he recently had + PPD, and + CXR findings, being admitted for rule out TB 1.) Rule out TB -AFB Smear X3 - Quant Gold - Sputum cx - ID consult - Isolation Percautions 2.) Non-Specific Pulm. Infilterates - ?CAP - S/P Cef/Azithro in ED - Pt. Asymptomatic - Urine AGs - Mild Leukocytosis, afebrile, would hold off further Abx. for now 3.) Opiod/ETOH Dependence - Methadone protocol - Detox Consult - CIWA - Thiamine/Folic A daily 4.) CHF hx - C/W ASA, Coreg - Euvolemic - Sony/ARB when renal fxn improves 5.) TObacco Dependence - Advise smoking cessation 6.) Depression - C/W Lexapro 7.) Microcytic Anemia - Fe Studies - Outpt. [facility] - Stool Occult 8.) MACARENA?CKD - U lytes - Avoid Nephrotoxins - Trend 9.) Dvt Ppx - Heparin [address] in Med-Sx
[2018-01-25] MEDS ORDERED: DOCUSATE SODIUM 100 MG CAPSULE (FP) PO PRN (20:27)
[2018-01-25] MEDS ORDERED: POLYETHYLENE GLYCOL 3350 119 GM BTL PO PRN (20:27)
[2018-01-25] MEDS ORDERED: chlordiazePOXIDE HCL 25 MG CAPSULE ONE (20:39)
[2018-01-25] MEDS ORDERED: CEFTRIAXONE 1 GM/50 ML BAG ONE (20:39)
[2018-01-25] MEDS ORDERED: ESCITALOPRAM OXALATE 10 MG TABLET (FP) ONE (20:39)
[2018-01-25] MEDS ORDERED: FOLIC ACID 1 MG TABLET (FP) PO ONE (20:42)
[2018-01-25] MEDS ORDERED: THIAMINE HCL 100 MG TABLET (FP) PO SCH (20:45)
[2018-01-25] MEDS ORDERED: chlordiazePOXIDE 5 MG CAPSULE PO SCH (20:45)
[2018-01-25] MEDS ORDERED: METHADONE HCL 10 MG TABLET PO ONE (20:46)
[2018-01-25] MEDS ORDERED: METHADONE HCL 10 MG TABLET ONE (20:48)
[2018-01-25] MEDS ORDERED: diazePAM 2 MG TABLET PO PRN (21:04)
--- NOTE | 2018-01-25 21:04 | HP ---
CHIEF COMPLAINT: r/o TB PCP: Dr. Magallanes @ [facility] [place] HISTORY OF PRESENT ILLNESS: 48 year old male with a past medical history of hypertension, abdominal aortic aneurysm s/p aortic stent, CHF, opioid addiction, TB exposure (1995) brought from [facility] for abnormal CXR and labwork. Patient denies any cough, shortness of breath, fevers, chills, nausea, vomiting, diarrhea, chest pain, abdominal pain. Patient does endorse night sweats over the past 3 nights as well as weight loss. He states that he was exposed to TB in the past and was treated with one medication, but he denies ever having overt tuberculosis. Patient states that he had an episode of pneumonia in the past. He was admitted for detox at [facility] on 01/21 for heroin and alcohol use. He completed 4 days at [facility] before arriving here. Denies having withdrawal symptoms. Denies ever having episode of seizure. ER course was notable for: (1) normal temperature (2) white count (at [facility] 12.1) (3) anemia (8.7) Recent Travel: unknown PAST MEDICAL HISTORY: hypertension, abdominal aortic aneurysm s/p aortic stent, CHF, opioid addiction , TB exposure (1995) PAST SURGICAL HISTORY: 6 prior surgeries, hip replacement, AAA, R hand surgery, Social History: Smokin pack year hx Alcohol: chronic user, last use last Wednesday Drugs: Heroin Family History: Allergies fish derived Allergy (Severe, Verified 01/24/18 15:31) Hives SEAFOOD = FISH + SHELLFISH shellfish derived Allergy (Severe, Verified 01/24/18 15:31) Hives SEAFOOD = FISH + SHELLFISH tomato Allergy (Severe, Verified 01/21/18 14:12) Swelling No Known Drug Allergies Allergy (Unknown, Verified 01/21/18 15:05) SEAFOOD Allergy (Severe, Uncoded 01/21/18 14:12) Hives NKDA Allergy (Uncoded 01/21/18 14:12) HOME MEDICATIONS: Home Medications Medication Instructions Recorded Escitalopram Oxalate [Lexapro -] 20 mg PO DAILY #30 tablet 01/22/18 traZODone HCL [Desyrel -] 50 mg PO HS #30 tablet 01/22/18 Amlodipine Besylate [Norvasc -] 10 mg PO DAILY #30 tablet 01/24/18 Aspirin [ASA -] 81 mg PO DAILY #30 tab.chew 01/24/18 Carvedilol [Coreg -] 25 mg PO BID #60 tablet 01/24/18 REVIEW OF SYSTEMS CONSTITUTIONAL: night sweats, weight loss Absent: fever, chills, diaphoresis, generalized weakness, malaise, loss of appetite, weight change HEENT: Absent: rhinorrhea, nasal congestion, throat pain, throat swelling, difficulty swallowing, mouth swelling, ear pain, eye pain, visual changes CARDIOVASCULAR: Absent: chest pain, syncope, palpitations, irregular heart rate, lightheadedness , peripheral edema RESPIRATORY: Absent: cough, shortness of breath, dyspnea with exertion, orthopnea, wheezing, stridor, hemoptysis GASTROINTESTINAL: Absent: abdominal pain, abdominal distension, nausea, vomiting, diarrhea, constipation, melena, hematochezia GENITOURINARY: Absent: dysuria, frequency, urgency, hesitancy, hematuria, flank pain, genital pain MUSCULOSKELETAL: Absent: myalgia, arthralgia, joint swelling, back pain, neck pain SKIN: Absent: rash, itching, pallor HEMATOLOGIC/IMMUNOLOGIC: Absent: easy bleeding, easy bruising, lymphadenopathy, frequent infections ENDOCRINE: Absent: unexplained weight gain, unexplained weight loss, heat intolerance, cold intolerance NEUROLOGIC: Absent: headache, focal weakness or paresthesias, dizziness, unsteady gait, seizure, mental status changes, bladder or bowel incontinence PSYCHIATRIC: Absent: anxiety, depression, suicidal or homicidal ideation, hallucinations. PHYSICAL EXAMINATION Vital Signs - 24 hr 01/25/18 01/25/18 16:40 17:34 Temperature 98.9 F Pulse Rate 81 Respiratory 17 Rate Blood Pressure 85/55 Blood Pressure 133/60 [Right] O2 Sat by Pulse 97 Oximetry (%) GENERAL: A&O x 3 EYES: PERRLA, EOMI ENT: moist mucus membranes LUNGS: diminished breath sounds b/l HEART: RRR no murmurs ABDOMEN: soft, nontender, bs presents MUSCULOSKELETAL: ROM normal UPPER EXTREMITIES: 2+ pulses, warm, well-perfused. No cyanosis. No clubbing. No peripheral edema. LOWER EXTREMITIES: 2+ pulses, warm, well-perfused. No calf tenderness. No peripheral edema. NEUROLOGICAL: Cranial nerves II-XII intact. Normal speech. Normal gait. IMAGING: CT Chest (01/25): Nonspecific bilateral pulmonary infiltrates are noted as discussed above which may be on the basis of tuberculosis. Paraseptal emphysema. Probable superimposed centrilobular emphysema (versus representing subcentimeter postinflammatory/ postinfectious blebs). Mild nonspecific mediastinal lymphadenopathy. Atherosclerotic coronary artery calcifications which are at least moderate in degree. Endovascular aortic stent in place. ASSESSMENT/PLAN: 48 year old male with a hx of HTN, AAA, CHF, opioid abuse, TB exposure is admitted to the hospital to r/o TB/possible PNA #Pneumonia: unlikely community acquired PNA given no symptoms, could be TB based on CXR/CT -given ceftriaxone/azithromycin in ED -hold abx for now given asymptomatic picture, re-evaluate in AM -ID consult, Dr. Blue appreciated -CT results listed above, cannot r/o TB -Sputum cultures -AFB smears x3 -Quantiferon gold -repeat EKG for prolonged QT -airborne isolation precautions #Detox: patient was at [facility] for heroin and alcohol detox, not currently having any withdrawal symptoms -continue methadone dose given at [facility] (10mg @ 6am) -patient was lethargic as per nurse; hold librium and give valium 2mg PRN -miralax/colace if constipated due to methadone use -Dr. Gibbs consult appreciated for detox #MACARENA: patient may have MACARENA on CKD, unclear -urine lytes in AM #Microcytic Anemia: stable -iron studies in AM -repeat CBC in AM #Hypertension: stable, not an acute concern -continue amlodipine 10mg PO QD -continue carvedilol 25m PO BID #S/P Aortic repair -continue aspirin 81mg QD #Depression: stable -continue lexapro 20mg PO QD -continue trazadone 50mg PO HS #FEN -No standing fluids -Replete lytes in AM -sodium-controlled diet #Prophylaxis -heparin 5000 subq TID #Disposition -admit to med-surg Visit type - Emergency Visit Emergency Visit: Yes ED Registration Date: 01/25/18 Care time: The patient presented to the Emergency Department on the above date and was hospitalized for further evaluation of their emergent condition. - New Patient This patient is new to me today: Yes Date on this admission: 01/25/18 - Critical Care Critical Care patient: No Hospitalist Screening - Colonoscopy Questionnaire Colonoscopy Questionnaire: Colonoscopy Questionnaire - Patient: 50 - 75 years old and never had a screening colonoscopy: Unknown History of colon or rectal polyps, or CA: Unknown History of IBD, Crohn's disease or UC: Unknown History of abdominal radiation therapy as a child: Unknown - Relative: 1 with colon or rectal CA, or polyps at age 60 or younger: Unknown Colon or rectal CA diagnosed at age 45 or younger: Unknown Multiple relatives with colon or rectal CA: Unknown - Outcome: Screening Result: Negative Screen
[2018-01-25] MEDS ORDERED: chlordiazePOXIDE 5 MG CAPSULE PO ONE (21:10)
--- NOTE | 2018-01-25 21:29 | MSN ---
Admitting History and Physical - Primary Care Physician PCP: Dr Magallanes ([facility]) - Admission Chief Complaint: Pneumonia History of Present Illness: Patient History Source: Patient, Transfer Record Limitations to Obtaining History: No Limitations - Past Medical History Cardiovascular: Yes: Aneurysm (Aortic aneurysm), CHF Pulmonary: Yes: Pneumonia, Other (Prior exposure to TB) - Past Surgical History Past Surgical History: Yes: AAA Repair (Endovascular aortic stent), Joint Replacement (Total hip replacement) - Smoking History Smoking history: Current every day smoker (Patient endorses smoking 1/2 pack per day) Have you smoked in the past 12 months: Yes Aproximately how many cigarettes per day: 10 - Alcohol/Substance Use Hx Alcohol Use: Yes History of Substance Use: reports: Heroin Home Medications - Allergies Allergies/Adverse Reactions: Allergies Allergy/AdvReac Type Severity Reaction Status Date / Time fish derived Allergy Severe Hives Verified 01/24/18 15:31 shellfish derived Allergy Severe Hives Verified 01/24/18 15:31 tomato Allergy Severe Swelling Verified 01/21/18 14:12 No Known Drug Allergies Allergy Unknown Verified 01/21/18 15:05 SEAFOOD Allergy Severe Hives Uncoded 01/21/18 14:12 NKDA Allergy Uncoded 01/21/18 14:12 - Home Medications Home Medications: Ambulatory Orders Escitalopram Oxalate [Lexapro -] 20 mg PO DAILY #30 tablet 01/22/18 traZODone HCL [Desyrel -] 50 mg PO HS #30 tablet 01/22/18 Amlodipine Besylate [Norvasc -] 10 mg PO DAILY #30 tablet 01/24/18 Aspirin [ASA -] 81 mg PO DAILY #30 tab.chew 01/24/18 Carvedilol [Coreg -] 25 mg PO BID #60 tablet 01/24/18 Family Disease History - Family Disease History Family Disease History: Diabetes: Father (HTN), Heart Disease: Father Review of Systems - Review of Systems Constitutional: reports: Night Sweats, Unintentional Wgt. Loss (Patient states that he weighed 160lbs before his last relapse). denies: Fever Cardiovascular: denies: Edema, Shortness of Breath Respiratory: denies: Cough, SOB, SOB on Exertion Neurological: denies: Seizure, Tremors Physical Examination Vital Signs: Vital Signs Temperature 98.9 F 01/25/18 16:40 Pulse Rate 81 01/25/18 16:40 Respiratory Rate 17 01/25/18 16:40 Blood Pressure 133/60 01/25/18 17:34 O2 Sat by Pulse Oximetry (%) 97 01/25/18 16:40 Constitutional: Yes: Well Nourished, No Distress Neck: Yes: WNL Cardiovascular: Yes: Regular Rate and Rhythm, S1, S2 Respiratory: Yes: Diminished (Bilaterally) Edema: No Peripheral Pulses WNL: Yes Neurological: Yes: WNL, Alert, Oriented ...Motor Strength: WNL Psychiatric: Yes: WNL, Alert, Oriented Problem List - Problems (1) Alcohol dependence with uncomplicated withdrawal Code(s): F10.230 - ALCOHOL DEPENDENCE WITH WITHDRAWAL, UNCOMPLICATED (2) Opioid dependence Code(s): F11.20 - OPIOID DEPENDENCE, UNCOMPLICATED Qualifiers: Substance use status: uncomplicated Qualified Code(s): F11.20 - Opioid dependence, uncomplicated (3) CHF (congestive heart failure) Code(s): I50.9 - HEART FAILURE, UNSPECIFIED (4) Depressive disorder Code(s): F32.9 - MAJOR DEPRESSIVE DISORDER, SINGLE EPISODE, UNSPECIFIED (5) HTN (hypertension) Code(s): I10 - ESSENTIAL (PRIMARY) HYPERTENSION Qualifiers: Hypertension type: essential hypertension Qualified Code(s): I10 - Essential (primary) hypertension (6) Ascending aortic aneurysm Code(s): I71.2 - THORACIC AORTIC ANEURYSM, WITHOUT RUPTURE (7) Status post left hip replacement Code(s): Z96.642 - PRESENCE OF LEFT ARTIFICIAL HIP JOINT Assessment/Plan A/P: Heroine withdrawal - Methadone taper (currently on 10mg PO QD) - Miralax and Colace PRN for constipation Alcohol withdrawal - Valium 2mg PO Q6H PRN - Administer thiamine and folic acid PO Pneumonia r/o TB - AFB Smear - Quantiferon GOLD - Sputum culture - ID consult - Ceftriaxone and azithromycin pending EKG (r/o QT prolongation) Depression - Continue Lexapro from home meds Microcytic Anemia - Iron studies in AM Chronic CHF - Continue ASA, Carvedilol from home meds MACARENA - Urine electrolytes ordered in AM - Encourage PO hydration - Renal US HTN - Continue Norvasc from home meds DVT Prophylaxis - Heparin 5000 Units SQ Dispo: - Admit to Med/Surg
[2018-01-25] MEDS: HEPARIN NA (PORCINE) 5,000 UNITS/ML 1ML VIAL SQ SCH ×2 (22:35→22:44)
[2018-01-25] MEDS: ASPIRIN 81 MG CHEWABLE TABLETS PO SCH (22:35)
[2018-01-25] MEDS: ESCITALOPRAM OXALATE 20 MG TABLET (FP) PO SCH (22:36)
[2018-01-25] MEDS: traZODone HCL 50 MG TABLET (FP) PO SCH (22:36)
[2018-01-25] MEDS: amLODIPine BESYLATE 5 MG TABLET (FP) PO SCH (22:36)
[2018-01-25] MEDS: CARVEDILOL 25 MG TABLET (FP) PO SCH (22:36)
[2018-01-26] MEDS: HEPARIN NA (PORCINE) 5,000 UNITS/ML 1ML VIAL SQ SCH ×4 (02:13→17:33)
--- NOTE | 2018-01-26 07:34 | PN ---
Physical Exam: SUBJECTIVE: Patient seen and examined by me this AM - No overnight events. Denies all symptoms. Unwilling to answer questions appropriately during interview. Wants breakfast. OBJECTIVE: Vital Signs Intake & Output 01/23/18 01/24/18 01/25/18 01/26/18 23:59 23:59 23:59 23:59 Weight 72.575 kg Period Temp Pulse Resp BP Sys/Parsons Pulse Ox Last 24 Hr 98.1 F-98.9 F 81-88 17-20 85-146/54-77 97-98 GENERAL: The patient is awake, alert, and fully oriented, in no acute distress. HEAD: Normal with no signs of trauma. EYES: PERRL, extraocular movements intact, sclera anicteric, conjunctiva clear. No ptosis. ENT: Ears normal, nares patent, oropharynx clear without exudates, moist mucous membranes. NECK: Trachea midline, full range of motion, supple. LUNGS: Poor effort. No respiratory distress or accessory muscle use. BL upper lobe trace crackles, decreased air entry. HEART: Regular rate and rhythm, S1, S2 without murmur, rub or gallop. ABDOMEN: Soft, nontender, nondistended, normoactive bowel sounds, no guarding, no rebound, no hepatosplenomegaly, no masses. EXTREMITIES: 2+ pulses, warm, well-perfused, no edema. Multiple linear scars on R forearm extensor surface. Healed eschar on extensor surface of L forearm. NEUROLOGICAL: Cranial nerves II through XII grossly intact. Normal speech, gait not observed. PSYCH: Flat affect SKIN: L lateral forearm with small eschar, likely prior injection site. CBC, BMP 01/26/18 06:20 01/26/18 06:20 Active Medications Generic Name Dose Route Start Last Admin Trade Name Freq PRN Reason Stop Dose Admin Amlodipine Besylate 10 mg 01/25/18 21:30 01/25/18 22:36 Norvasc - PO 10 mg DAILY MAGDALENA Administration Aspirin 81 mg 01/25/18 21:30 01/25/18 22:35 Asa - PO 81 mg DAILY MAGDAELNA Administration Carvedilol 25 mg 01/25/18 22:00 01/25/18 22:36 Coreg - PO 25 mg BID MAGDALENA Administration Diazepam 2 mg 01/25/18 21:04 01/25/18 22:55 Valium - PO 2 mg Q6H PRN Administration WITHDRAWAL(CONT SUBST) Docusate Sodium 100 mg 01/25/18 20:27 Colace - PO BID PRN CONSTIPATION Escitalopram Oxalate 20 mg 01/25/18 21:30 01/25/18 22:36 Lexapro - PO 20 mg DAILY MAGDALENA Administration Heparin Sodium (Porcine) 5,000 unit 01/25/18 20:30 01/26/18 02:13 Heparin - SQ Not Given Q8H-IV MAGDALENA Methadone HCl 10 mg 01/26/18 06:00 Dolophine - PO 01/26/18 10:00 DAILY@0600 MAGDALENA Polyethylene Glycol 17 gm 01/25/18 20:27 Miralax (For Daily Use) - PO DAILY PRN CONSTIPATION Thiamine HCl 100 mg 01/25/18 20:45 01/25/18 22:35 Vitamin B1 - PO 100 mg DAILY MAGDALENA Administration Trazodone HCl 50 mg 01/25/18 22:00 01/25/18 22:36 Desyrel - PO 50 mg HS MAGDALENA Administration Micro pending Chest CT 01/26 - IMPRESSION: Nonspecific bilateral pulmonary infiltrates are noted as discussed above which may be on the basis of tuberculosis. Paraseptal emphysema. Probable superimposed centrilobular emphysema (versus representing subcentimeter postinflammatory/ postinfectious blebs). Mild nonspecific mediastinal lymphadenopathy. Atherosclerotic coronary artery calcifications which are at least moderate in degree. Endovascular aortic stent in place ASSESSMENT/PLAN: 48 year old male with a hx of HTN, AAA, CHF, opioid abuse, TB exposure is admitted to the hospital to r/o TB/possible PNA in setting of 15lb weight loss over last three months and night sweats for past few days at [facility]. Pt poorly cooperative with medical team, giving limited responses during interview. #Pneumonia- unlikely community acquired PNA given no symptoms, could be TB based on CXR/CT -eftriaxone/azithromycin in ED -No abx currently; f/u cultures -ID consult. Recs appreciated -CT results listed above, cannot r/o TB -Sputum cultures -f/u AFB smears x3 -Quantiferon gold -repeat EKG for prolonged QT -airborne isolation precautions - Pulm consulted, recommends TB work-up precaution - possible flex bronch #Detox- was at [facility] for heroin and alcohol detox; no withdrawal symptoms - Methadone 10mg qD - valium prn q6h for withdrawal - miralax/colace if constipated - Dr. Gibbs consulted, recs appreciated #MACARENA - 2.4 on admission at [facility]; 1.6 today -urine lytes in AM - Trend Cr - avoid nephrotoxic agents #Microcytic Anemia: stable - iron studies -Trend H/H - transfuse at <7 - f/u FOBT - iron supp #alcohol abuse - monitor for withdrawals -c/w thiamine, folate, MVI #Hypertension- stable -continue amlodipine 10mg PO QD -continue carvedilol 25m PO BID #S/P Aortic repair - - continue aspirin 81mg QD - f/u imaging results #Depression: stable -lexapro 20mg PO QD -trazadone 50mg PO HS #Insomnia - Ambien 10mg #FEN PO hydration Daily BMPs Na restricted diet #Prophylaxis -heparin 5000 subq TID #Disposition M/S Plan discussed with attending, Dr. Es De La Cruz, PGY1 Visit type - Emergency Visit Emergency Visit: Yes ED Registration Date: 01/25/18 Care time: The patient presented to the Emergency Department on the above date and was hospitalized for further evaluation of their emergent condition. - New Patient This patient is new to me today: Yes Date on this admission: 01/26/18 - Critical Care Critical Care patient: No
[2018-01-26 07:57] LABS: ANION GAP 12 (8-16); BLOOD UREA NITROGEN 35 mg/dL (7-18); CALCIUM 8.5 mg/dL (8.5-10.1); CHLORIDE 102 mmol/L (98-107); CO2 23 mmol/L (21-32); CREATININE 1.6 mg/dL (0.7-1.3); GLUCOSE,RANDOM 86 mg/dL (74-106); MAGNESIUM 2.3 mg/dL (1.8-2.4); PHOSPHOROUS 4.5 mg/dL (2.5-4.9); SODIUM 137 mmol/L (136-145)
--- NOTE | 2018-01-26 08:43 | PN ---
Progress Note, Physician Chief Complaint: ID 48 year old male admitted from detox unit for an abnormal chest xray. HE has a polysubstance abuse history though does not inject drugs. Noted to have an abnormal chest xray routine leading to a chest CT which showed emphysema with ? chronic changes raising the question of TB. The patient was treated for latent TB 1995 and finished 9 months treatment. He is HIV negative here and Hep C negative. He is not couphing and has no sweats fevers LONI sputum or hemoptysis. HE does not know why he was sent to hospital as he is asymptomatic. Past history of anemia ?etiology, stenting of thoracic aneursym [facility] while incarcerated, HPTN, CKD left hip replacement - Current Medication List Current Medications: Active Medications Amlodipine Besylate (Norvasc -) 10 mg PO DAILY [facility] Last Admin: 01/25/18 22:36 Dose: 10 mg Aspirin (Asa -) 81 mg PO DAILY [facility] Last Admin: 01/25/18 22:35 Dose: 81 mg Carvedilol (Coreg -) 25 mg PO BID [facility] Last Admin: 01/25/18 22:36 Dose: 25 mg Diazepam (Valium -) 2 mg PO Q6H PRN PRN Reason: WITHDRAWAL(CONT SUBST) Last Admin: 01/25/18 22:55 Dose: 2 mg Docusate Sodium (Colace -) 100 mg PO BID PRN PRN Reason: CONSTIPATION Escitalopram Oxalate (Lexapro -) 20 mg PO DAILY [facility] Last Admin: 01/25/18 22:36 Dose: 20 mg Heparin Sodium (Porcine) (Heparin -) 5,000 unit SQ Q8H-IV [facility] Last Admin: 01/26/18 02:13 Dose: Not Given Methadone HCl (Dolophine -) 10 mg PO DAILY@0600 [facility] Stop: 01/26/18 10:00 Polyethylene Glycol (Miralax (For Daily Use) -) 17 gm PO DAILY PRN PRN Reason: CONSTIPATION Thiamine HCl (Vitamin B1 -) 100 mg PO DAILY [facility] Last Admin: 01/25/18 22:35 Dose: 100 mg Trazodone HCl (Desyrel -) 50 mg PO HS [facility] Last Admin: 01/25/18 22:36 Dose: 50 mg - Objective Vital Signs: Vital Signs Temperature 98.3 F 01/26/18 06:12 Pulse Rate 84 01/26/18 06:12 Respiratory Rate 20 03/14/18 06:12 Blood Pressure 98/54 01/26/18 06:12 O2 Sat by Pulse Oximetry (%) 98 01/25/18 22:47 Constitutional: Yes: No Distress Cardiovascular: Yes: Regular Rate and Rhythm, S1, S2. No: Murmur Respiratory: Yes: WNL, Regular, CTA Bilaterally. No: Rales, Rhonchi Gastrointestinal: Yes: WNL, Normal Bowel Sounds. No: Tenderness, Tenderness, Rebound Edema: No Labs: CBC, BMP 01/26/18 06:20 Assessment/Plan Assessment Polysubstance abuse Abnormal chest xray CT probably chronic changes from emphysema cystic changes TB unlikely Treatment for Latent TB Thoracic anuersym stent Iron deficiency anemia Left hip replacement Rheumatoid arthritis Plan I do not feel patient needs to stay in the hospital for evaluation of TB. That said I would get pulmonary to see him and offer theri opinion in this regard and perhaps he can go back to the Detox unit with outpt followup of his medical issues anemia ect
[2018-01-26 08:57] LABS: BASO % 0.7 % (0-2.0); EOS % 8.2 % (0-4.5); HEMATOCRIT 26.9 % (35.4-49); HEMOGLOBIN 8.8 GM/dL (11.7-16.9); LYMPH % 13.9 % (8-40); MCH 24.9 pg (25.7-33.7); MCHC 32.7 g/dl (32.0-35.9); MEAN CELL VOLUME 76.3 fl (80-96); MEAN PLT VOLUME 7.6 fl (7.5-11.1); MONO % 10.1 % (3.8-10.2); NEUT % 67.1 % (42.8-82.8); PLATELET COUNT 582 K/MM3 (134-434); RBC 3.53 M/mm3 (4.00-5.60); RDW 21.4 % (11.9-15.9); WHITE BLOOD COUNT 9.6 K/mm3 (4.0-10.0)
--- NOTE | 2018-01-26 09:15 | CONSULT ---
Consult Detox [facility] Reason for Current Admission/Consult: substance use Referred by:: latia edmond MD - History History of Present Illness: 48 yo m known to m was [facility] when his routine screening cxr for PPD+ result showed infiltrates and his wbc was elevated w a fall in ihis cbc , no admittedd for pneumonia r/u active TB.,anemai work up. Patient appears congested, nad, and ax3 c/o anxiety and tremros. would like to stay on methadone 10mg daily with prn [id number] while hosptialized, not sure if he can return for rehab depends on holw long he is hopstialized - History Source History Provided By: Patient, Medical Record, Caregiver Limitations to Obtaining History: No Limitations - Alcohol/Substance Use Hx Alcohol Use: Yes Hx Substance Use: Yes Hx Substance Use Treatment: Yes - Current Drug/Alcohol Use Oxycontin Route: Oral Frequency: Daily Date of Last Use: 01/19/18 Alcohol Route: Oral Frequency: Daily Amount used: 1-2 pints Date of Last Use: 01/21/18 - Past Medical History Cardio/Vascular: Yes: Aneurysm (Aortic aneurysm), CHF Pulmonary: Yes: Pneumonia, Other (Prior exposure to TB) - Past Surgical History Past Surgical History: Yes: AAA Repair (Endovascular aortic stent), Joint Replacement (Total hip replacement) - Significant Medical Findings: 48 yo m at end ofi npatien dtox fro opioids and alcohol transferredt o [place] for work up of pneumonia r/o active tb, anemia, and eleaVTED WBS. MEDICALLYS TABLE, NO SIGNS OF WITHDRWAL BUT AGIATATED AND ANXIEOUOS AT TIME COWS - Scale Resting Pulse: 1= NE 81-100 Sweatin= No chills or Flushing Restless Observation: 0= Sits Still Pupil Size: 0= Normal to Room Light Bone or Joint Aches: 1= Mild Discomfort Runny Nose/ Eye Tearin= None GI Upset > 30mins: 0= None Tremor Observation: 0= None Yawning Observation: 0= None Anxiety or Irritability: 2=Irritable/Anxious Goose Flesh Skin: 0=Smooth Skin COWS Score: 4 CIWA Score - CIWA Score Nausea/Vomitin-Mild Nausea/No Vomiting Muscle Tremors: 1-None Visible, but [place] Anxiety: 3 Agitation: 3 Paroxysmal Sweats: No Perspiration Orientation: 0-Oriented Tacttile Disturbances: 0-None Auditory Disturbances: 0-None Visual Disturbances: 0-None Headache: 0-None Present CIWA-Ar Total Score: 8 Assessment Plan - Diagnosis (1) Pneumonia Status: Acute Qualifiers: Pneumonia type: due to unspecified organism Laterality: right Lung location: upper lobe of lung Qualified Code(s): J18.1 - Lobar pneumonia, unspecified organism (2) Alcohol dependence with uncomplicated withdrawal Status: Acute (3) Cocaine dependence Status: Acute (4) Opioid dependence Status: Acute Qualifiers: Substance use status: uncomplicated Qualified Code(s): F11.20 - Opioid dependence, uncomplicated (5) CHF (congestive heart failure) Status: Chronic (6) Depressive disorder Status: Chronic Comment: As per self-report and existing records.On medications.OPD care at [facility]. (7) HTN (hypertension) Status: Chronic Qualifiers: Hypertension type: essential hypertension Qualified Code(s): I10 - Essential (primary) hypertension (8) Nicotine dependence Status: Chronic Qualifiers: Nicotine product type: cigarettes Substance use status: uncomplicated Qualified Code(s): F17.210 - Nicotine dependence, cigarettes, uncomplicated (9) Rheumatoid arthritis Status: Chronic Qualifiers: Rheumatoid arthritis location: multiple sites Rheumatoid factor presence: unspecified presence Qualified Code(s): M06.9 - Rheumatoid arthritis, unspecified (10) Status post left hip replacement Status: Chronic (11) Drug-induced mood disorder Status: Suspected (12) 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 [id number]; 1. FLUIDS, VITAMINS, ANEMAI WORK UP 2. OUD - COTN METHADONE 10MG DAILY, 3. ALCOHOL USE DISORDER - VALIUM 5MG PRN FOR ANXIETY AQGITATION 4. INSOMAN - AMBIEN ORDERED. 5. PNEUMONIA R/O TB [facility], CONT CURRENT MEDS CAN RETURN TO [facility] FOR INANPTET REHAB WHEN MEDICALLY CLEARED IF PATIENT IS IN AGREEMENT. EMILI Billy md [phone] - Medication Detox Regimen/Protocol: Methadone/Valium
[2018-01-26] MEDS ORDERED: PT OWN MED DRAWER 7, Y5N ONE (09:45)
[2018-01-26] MEDS: CARVEDILOL 25 MG TABLET (FP) PO SCH ×2 (09:48→22:15)
[2018-01-26] MEDS: amLODIPine BESYLATE 5 MG TABLET (FP) PO SCH (09:48)
[2018-01-26] MEDS: ESCITALOPRAM OXALATE 20 MG TABLET (FP) PO SCH (09:48)
[2018-01-26] MEDS: ASPIRIN 81 MG CHEWABLE TABLETS PO SCH (09:48)
--- NOTE | 2018-01-26 10:49 | EKG ---
Test Reason : Blood Pressure : / mmHG Vent. Rate : 086 BPM Atrial Rate : 086 BPM P-R Int : 158 ms QRS Dur : 082 ms QT Int : 376 ms P-R-T Axes : 057 010 036 degrees QTc Int : 449 ms POOR DATA QUALITY, INTERPRETATION MAY BE ADVERSELY AFFECTED NORMAL SINUS RHYTHM MODERATE VOLTAGE CRITERIA FOR LVH, MAY BE NORMAL VARIANT BORDERLINE ECG WHEN COMPARED WITH ECG OF 21-JAN-2018 19:04, NO SIGNIFICANT CHANGE WAS FOUND Confirmed by TESSA LOWE MD ([id number]) on 01/26/2018 10:48:53 AM Referred By: Confirmed By:TESSA LOWE MD
[2018-01-26] MEDS ORDERED: ZOLPIDEM TARTRATE 5 MG TABLET PO PRN (11:08)
[2018-01-26] MEDS: METHADONE HCL 10 MG TABLET PO SCH (11:30)
[2018-01-26] MEDS: diazePAM 5 MG TABLET PO PRN (11:46)
[2018-01-26] MEDS: PRENATAL VITAMINS W/ FOLIC ACID TABLET (FP) PO SCH (13:55)
--- NOTE | 2018-01-26 15:34 | PN ---
Progress Note (short form) - Note Progress Note: PULMONARY IMP BILATERAL PATCHY UPPER LOBE INFILTRATES >CANNOT EXCLUDE TB REACTIVATION H/O TB AAA S/P STENT ASHD CHF SUBSTANCE ABUSE MACARENA PLAN SPUTUM AFB ISOLATION CULTURES POSSIBLE FLEX BRONCH MONITOR LYTES ,RENAL FUNCTION DETOX PROTOCOL DR ENCARNACION Problem List - Problems (1) H/O TB (tuberculosis) Code(s): Z86.11 - PERSONAL HISTORY OF TUBERCULOSIS (2) Alcohol dependence with uncomplicated withdrawal Code(s): F10.230 - ALCOHOL DEPENDENCE WITH WITHDRAWAL, UNCOMPLICATED (3) Ascending aortic aneurysm Code(s): I71.2 - THORACIC AORTIC ANEURYSM, WITHOUT RUPTURE (4) Cocaine dependence Code(s): F14.20 - COCAINE DEPENDENCE, UNCOMPLICATED (5) CHF (congestive heart failure) Code(s): I50.9 - HEART FAILURE, UNSPECIFIED (6) HTN (hypertension) Code(s): I10 - ESSENTIAL (PRIMARY) HYPERTENSION Qualifiers: Hypertension type: essential hypertension Qualified Code(s): I10 - Essential (primary) hypertension (7) Nicotine dependence Code(s): F17.200 - NICOTINE DEPENDENCE, UNSPECIFIED, UNCOMPLICATED Qualifiers: Nicotine product type: cigarettes Substance use status: uncomplicated Qualified Code(s): F17.210 - Nicotine dependence, cigarettes, uncomplicated (8) Status post left hip replacement Code(s): Z96.642 - PRESENCE OF LEFT ARTIFICIAL HIP JOINT (9) 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
--- NOTE | 2018-01-26 17:32 | PN ---
Teaching Attending Note Name of Resident: Alfredo De La Cruz ATTENDING PHYSICIAN STATEMENT I saw and evaluated the patient. I reviewed the resident's note and discussed the case with the resident. I agree with the resident's findings and plan as documented. SUBJECTIVE: Patient is lethargic. OBJECTIVE: Vital Signs Period Temp Pulse Resp BP Sys/Parsons Pulse Ox Last 24 Hr 98.1 F-98.7 F 84-90 18-20 98-146/54-78 98-98 HEART: S1S2, RRR LUNGS: Clear ABDOMEN: Soft, non-tender, non-distended, normal BS EXTREMITIES: No edema Laboratory Results - last 24 hr 01/26/18 01/26/18 06:20 06:20 WBC 9.6 RBC 3.53 L Hgb 8.8 L Hct 26.9 L MCV 76.3 L MCH 24.9 L MCHC 32.7 RDW 21.4 H Plt Count 582 H MPV 7.6 Neutrophils % 67.1 Lymphocytes % 13.9 Monocytes % 10.1 Eosinophils % 8.2 H D Basophils % 0.7 Sodium 137 Potassium 5.0 Chloride 102 Carbon Dioxide 23 Anion Gap 12 BUN 35 H D Creatinine 1.6 H D Random Glucose 86 D Calcium 8.5 Phosphorus 4.5 Magnesium 2.3 Current Medications Generic Name Dose Route Start Last Admin Trade Name Freq PRN Reason Stop Dose Admin Amlodipine Besylate 10 mg 01/25/18 21:30 01/26/18 09:48 Norvasc - PO 10 mg DAILY MAGDALENA Administration Aspirin 81 mg 01/25/18 21:30 01/26/18 09:48 Asa - PO 81 mg DAILY MAGDALENA Administration Carvedilol 25 mg 01/25/18 22:00 01/26/18 09:48 Coreg - PO 25 mg BID MAGDALENA Administration Diazepam 5 mg 01/26/18 10:45 01/26/18 11:46 Valium - PO 5 mg Q6H PRN Administration WITHDRAWAL(CONT SUBST) Docusate Sodium 100 mg 01/25/18 20:27 Colace - PO BID PRN CONSTIPATION Escitalopram Oxalate 20 mg 01/25/18 21:30 01/26/18 09:48 Lexapro - PO 20 mg DAILY MAGDALENA Administration Heparin Sodium (Porcine) 5,000 unit 01/25/18 20:30 01/26/18 09:51 Heparin - SQ Not Given Q8H-IV MAGDALENA Methadone HCl 10 mg 01/26/18 11:00 01/26/18 11:30 Dolophine - PO 02/01/18 10:59 10 mg DAILY@0600 MAGDALENA Administration Polyethylene Glycol 17 gm 01/25/18 20:27 Miralax (For Daily Use) - PO DAILY PRN CONSTIPATION Multivit/Folic Acid/Iron 1 tab 01/26/18 10:00 01/26/18 13:55 Vitamins (Sjr) - PO 1 tab DAILY MAGDALENA Administration Thiamine HCl 100 mg 01/26/18 22:00 Vitamin B1 - PO HS MAGDALENA Trazodone HCl 50 mg 01/25/18 22:00 01/25/18 22:36 Desyrel - PO 50 mg HS MAGDALENA Administration Zolpidem Tartrate 10 mg 01/26/18 11:08 Ambien - PO HS PRN INSOMNIA ASSESSMENT AND PLAN: This is a 48 year old man with a history of AAA, depression, CHF, opioid dependence who was sent to the ED from [facility] for positive PPD, abnormal CXR , leukocytosis, anemia. 1. 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 Opioid dependence - Continue Methadone 3. Continuous alcohol dependence - Continue Valium as needed for withdrawal - Continue thiamine, folic acid, MVI 4. Acute kidney injury on stage 3 CKD - Improving 5. HTN - Continue Norvasc, Coreg 6. History of CHF 7. History of AAA and endovascular repair 8. Nicotine dependence 9. Depression - Continue Lexapro, Trazodone 10. Anemia, acute on chronic microcytic - Check iron studies, stool occult blood
--- NOTE | 2018-01-26 19:08 | CONS ---
DATE OF CONSULTATION: 01/26/2018 REFERRING PHYSICIAN: History is obtained from chart. Patient is sedated. The patient is a 48-year-old black male with a past medical history of hypertension, history of pulmonary TB treated in 1995 for nine months at [facility], abdominal aortic aneurysm status post stent placement, congestive heart failure, opioid dependence currently on methadone, history of heroin abuse, alcohol who was admitted to [facility] status post abnormal chest x-ray at [facility]. Patient went to [facility] for detox. He had a chest x-ray performed which was abnormal. He subsequently underwent a CAT scan of the chest which was abnormal, possibly consistent with TB, at which time, he was transferred to [facility] for further management. It is unknown whether or not patient has a cough, fevers, weight loss, or night sweats. I cannot obtain any history from him at this point in time. PAST MEDICAL HISTORY: Again includes abdominal aortic aneurysm status post stent placement, history of pulmonary TB, history of left hip replacement, CHF, opioid dependence, heroin abuse, EtOH abuse, depression, aortic stent, history of tobacco use unknown quantity. REVIEW OF SYSTEMS: Unable to obtain. CURRENT MEDICATIONS: Include Lexapro, heparin, , valium, Coreg, Colace, MiraLAX, aspirin, methadone, and vitamin B1. PHYSICAL EXAMINATION: General: The patient is a well-developed, well-nourished black male, lethargic secondary to medications but in no acute distress. Vital Signs: He is afebrile. Respiratory rate is 20. O2 saturation is 98 on room air. Blood pressure is 98/54. HEENT: Normocephalic, atraumatic. Neck: Supple. Heart: Regular. S1, S2. Chest: Poor inspiratory effort. Abdomen: Soft. Bowel sounds are positive. Extremities: No cyanosis or edema. LABORATORIES: WBC is 9.6, hemoglobin 8.8, hematocrit 26.9 with a platelet count of 582,000; there are 67 polys, 13 lymphs, 10 monocytes, and 8 eosinophils. Chemistries: BUN 35, creatinine 1.6. Chest CT with patchy infiltrates in the anterior and posterior segments of the right upper lobe and a consolidation in superior segment of the right lower lobe and small patchy infiltrates in the anterior and posterior segments of the left upper lobe and COPD changes bilaterally. IMPRESSION: 1. Bilateral infiltrates, cannot exclude possible re-activation of tuberculosis. 2. History of tuberculosis. 3. Chronic obstructive pulmonary disease. 4. Substance abuse. 5. Hypertension. 6. Abdominal aortic aneurysm, status post stent. PLAN: Do sputum for AFB and culture. If unable to obtain adequate sputum, will perform flexible bronchoscopy. Continue respiratory isolation. LESLIE ENCARNACION M.D. FLOWER/[id number]
[2018-01-26] MEDS ORDERED: THIAMINE HCL 100 MG TABLET (FP) PO SCH (22:00)
[2018-01-26] MEDS: traZODone HCL 50 MG TABLET (FP) PO SCH (22:15)
[2018-01-27] MEDS: HEPARIN NA (PORCINE) 5,000 UNITS/ML 1ML VIAL SQ SCH ×2 (01:27→09:54)
[2018-01-27] MEDS: METHADONE HCL 10 MG TABLET PO SCH (06:10)
--- NOTE | 2018-01-27 06:58 | PN ---
Physical Exam: SUBJECTIVE: Patient seen and examined - Pt somnolent, poorly cooperative during interview; A&Ox2; denies f/c/n/v/d; denies f/c/n/v/d, night sweats, cough, SOB, ab pain, rashes; Endorses mild chest discomfort with deep inspiration; - pt agitated w/ staff overnight; afebrile, persistently hypotensive to 90s systolic; Per pulm recs, suggest possible flex bronchoscopy to further evaluation lung pathology; anemia likely ACD OBJECTIVE: Vital Signs Intake & Output 01/24/18 01/25/18 01/26/18 01/27/18 23:59 23:59 23:59 23:59 Weight 72.575 kg Period Temp Pulse Resp BP Sys/Parsons Pulse Ox Last 24 Hr 98.6 F-98.7 F 90-100 18-20 94-111/62-78 98 GENERAL: A&Ox2, somnolent HEAD: Normal with no signs of trauma. EYES: PERRL, extraocular movements intact, sclera anicteric, conjunctiva clear. No ptosis. ENT: Ears normal, nares patent, oropharynx clear without exudates, moist mucous membranes. NECK: Trachea midline, full range of motion, supple. LUNGS: No respiratory distress or accessory muscle use. BL upper lobe crackles, decreased air entry. Bibasilar trace rhonchi. HEART: 2/6 systolic ejection murmur, best heard at LUSB. Regular rate and rhythm , S1, S2 without murmur, rub or gallop. ABDOMEN: Soft, nontender, nondistended, normoactive bowel sounds, no guarding, no rebound, no hepatosplenomegaly, no masses. EXTREMITIES: 2+ pulses, warm, well-perfused, no edema. Multiple linear scars on R forearm extensor surface. Healed eschar on extensor surface of L forearm. NEUROLOGICAL: Cranial nerves II through XII grossly intact. Normal speech, gait not observed. PSYCH: Flat affect SKIN: L lateral forearm with small eschar, likely prior injection site. Laboratory Results - last 24 hr CBC, BMP 01/26/18 06:20 01/26/18 06:20 01/26/18 01/26/18 01/26/18 06:20 06:20 06:20 WBC 9.6 RBC 3.53 L Hgb 8.8 L Hct 26.9 L MCV 76.3 L MCH 24.9 L MCHC 32.7 RDW 21.4 H Plt Count 582 H MPV 7.6 Neutrophils % 67.1 Lymphocytes % 13.9 Monocytes % 10.1 Eosinophils % 8.2 H D Basophils % 0.7 Sodium 137 Potassium 5.0 Chloride 102 Carbon Dioxide 23 Anion Gap 12 BUN 35 H D Creatinine 1.6 H D Random Glucose 86 D Calcium 8.5 Phosphorus 4.5 Magnesium 2.3 Transferrin 179 L Active Medications Generic Name Dose Route Start Last Admin Trade Name Freq PRN Reason Stop Dose Admin Amlodipine Besylate 10 mg 01/25/18 21:30 01/26/18 09:48 Norvasc - PO 10 mg DAILY MAGDALENA Administration Aspirin 81 mg 01/25/18 21:30 01/26/18 09:48 Asa - PO 81 mg DAILY MAGDALENA Administration Carvedilol 25 mg 01/25/18 22:00 01/26/18 22:15 Coreg - PO 25 mg BID MAGDALENA Administration Diazepam 5 mg 01/26/18 10:45 01/26/18 11:46 Valium - PO 5 mg Q6H PRN Administration WITHDRAWAL(CONT SUBST) Docusate Sodium 100 mg 01/25/18 20:27 Colace - PO BID PRN CONSTIPATION Escitalopram Oxalate 20 mg 01/25/18 21:30 01/26/18 09:48 Lexapro - PO 20 mg DAILY MAGDALENA Administration Heparin Sodium (Porcine) 5,000 unit 01/25/18 20:30 01/27/18 01:27 Heparin - SQ Not Given Q8H-IV [facility] Methadone HCl 10 mg 01/26/18 11:00 01/27/18 06:10 Dolophine - PO 02/01/18 10:59 10 mg DAILY@0600 MAGDALENA Administration Polyethylene Glycol 17 gm 01/25/18 20:27 Miralax (For Daily Use) - PO DAILY PRN CONSTIPATION Multivit/Folic Acid/Iron 1 tab 01/26/18 10:00 01/26/18 13:55 Vitamins (Sjr) - PO 1 tab DAILY MAGDALENA Administration Thiamine HCl 100 mg 01/26/18 22:00 01/26/18 22:15 Vitamin B1 - PO 100 mg HS MAGDALENA Administration Trazodone HCl 50 mg 01/25/18 22:00 01/26/18 22:15 Desyrel - PO 50 mg HS MAGDALENA Administration Zolpidem Tartrate 10 mg 01/26/18 11:08 Ambien - PO HS PRN INSOMNIA micro pending Chest CT 01/26 - IMPRESSION: Nonspecific bilateral pulmonary infiltrates are noted as discussed above which may be on the basis of tuberculosis. Paraseptal emphysema. Probable superimposed centrilobular emphysema (versus representing subcentimeter postinflammatory/ postinfectious blebs). Mild nonspecific mediastinal lymphadenopathy. Atherosclerotic coronary artery calcifications which are at least moderate in degree. Endovascular aortic stent in place ASSESSMENT/PLAN: 48 year old male with a hx of HTN, AAA, CHF, opioid abuse, TB exposure is admitted to the hospital to r/o TB/possible PNA in setting of 15lb weight loss over last three months and night sweats for past few days at [facility]. Pt poorly cooperative with medical team, giving limited responses during interview. #Pneumonia- unlikely community acquired PNA given no symptoms, could be TB based on CXR/CT -eftriaxone/azithromycin in ED -No abx currently; f/u cultures -ID consult. Recs appreciated -CT results listed above, cannot r/o TB -Sputum cultures -f/u AFB smears x3 -Quantiferon gold -repeat EKG for prolonged QT -airborne isolation precautions - Pulm consulted, recommends TB work-up precaution - possible flex bronch #Detox- [facility]; no withdrawal symptoms - Methadone 10mg qD - valium prn q6h for withdrawal - miralax/colace if constipated - Dr. Gibbs consulted, recs appreciated #MACARENA - 2.4 on admission at [facility]; 1.6 today -urine lytes in AM - Trend Cr - avoid nephrotoxic agents #Microcytic Anemia: stable - iron studies -Trend H/H - transfuse at <7 - f/u FOBT - iron supp #alcohol abuse - monitor for withdrawals -c/w thiamine, folate, MVI #Hypertension- stable -continue amlodipine 10mg PO QD -continue carvedilol 25m PO BID #S/P Aortic repair - - continue aspirin 81mg QD - f/u imaging results #Depression: stable -lexapro 20mg PO QD -trazadone 50mg PO HS #Insomnia - Ambien 10mg #FEN PO hydration Daily BMPs Na restricted diet #Prophylaxis -heparin 5000 subq TID #Disposition M/S Plan discussed with attending, Dr. Es De La Cruz, PGY1
[2018-01-27 08:12] LABS: SERUM IRON SATURATION 4 % (15-55); TOTAL IRON BINDING CAPACITY 226 ug/dL (250-450); UIBC 216 ug/dL (111-343)
[2018-01-27] MEDS ORDERED: PT OWN MED DRAWER 7, Y5N ONE (09:36)
[2018-01-27] MEDS: amLODIPine BESYLATE 5 MG TABLET (FP) PO SCH (09:54)
[2018-01-27] MEDS: CARVEDILOL 25 MG TABLET (FP) PO SCH (09:54)
[2018-01-27] MEDS: ASPIRIN 81 MG CHEWABLE TABLETS PO SCH (09:54)
[2018-01-27] MEDS: ESCITALOPRAM OXALATE 20 MG TABLET (FP) PO SCH (09:54)
[2018-01-27] MEDS: PRENATAL VITAMINS W/ FOLIC ACID TABLET (FP) PO SCH (09:54)
[2018-01-27] MEDS: diazePAM 5 MG TABLET PO PRN (10:00)
--- NOTE | 2018-01-27 10:56 | PN ---
Progress Note (short form) - Note Progress Note: Somnolent but arousbale. Denies complaints but poor historian. No acute events overnight. Intake & Output 01/24/18 01/25/18 01/26/18 01/27/18 23:59 23:59 23:59 23:59 Weight 160 lb Last Vital Signs Temp Pulse Resp BP Pulse Ox 98.6 F 100 H 20 94/62 98 01/27/18 06:29 01/27/18 06:29 01/27/18 06:29 01/27/18 06:29 01/26/18 21:00 Active Medications Amlodipine Besylate (Norvasc -) 10 mg PO DAILY [facility] Last Admin: 01/27/18 09:54 Dose: 10 mg Aspirin (Asa -) 81 mg PO DAILY [facility] Last Admin: 01/27/18 09:54 Dose: 81 mg Carvedilol (Coreg -) 25 mg PO BID [facility] Last Admin: 01/27/18 09:54 Dose: 25 mg Diazepam (Valium -) 5 mg PO Q6H PRN PRN Reason: WITHDRAWAL(CONT SUBST) Last Admin: 01/27/18 10:00 Dose: 5 mg Docusate Sodium (Colace -) 100 mg PO BID PRN PRN Reason: CONSTIPATION Escitalopram Oxalate (Lexapro -) 20 mg PO DAILY [facility] Last Admin: 01/27/18 09:54 Dose: 20 mg Heparin Sodium (Porcine) (Heparin -) 5,000 unit SQ Q8H-IV [facility] Last Admin: 01/27/18 09:54 Dose: 5,000 unit Methadone HCl (Dolophine -) 10 mg PO DAILY@0600 [facility] Stop: 02/01/18 10:59 Last Admin: 01/27/18 06:10 Dose: 10 mg Polyethylene Glycol (Miralax (For Daily Use) -) 17 gm PO DAILY PRN PRN Reason: CONSTIPATION Multivit/Folic Acid/Iron ( Vitamins (Sjr) -) 1 tab PO DAILY [facility] Last Admin: 01/27/18 09:54 Dose: 1 tab Thiamine HCl (Vitamin B1 -) 100 mg PO HS [facility] Last Admin: 01/26/18 22:15 Dose: 100 mg Trazodone HCl (Desyrel -) 50 mg PO HS [facility] Last Admin: 01/26/18 22:15 Dose: 50 mg Zolpidem Tartrate (Ambien -) 10 mg PO HS PRN PRN Reason: INSOMNIA GENERAL: Somnolent, NAD HEAD: (-) trauma. EYES: sclera anicteric, conjunctiva clear. ENT: Ears normal, nares patent, oropharynx clear without exudates, moist mucous membranes. NECK: Trachea midline, full range of motion, supple. LUNGS: Bilateral crackles and rhonchi HEART: 2/6 systolic ejection murmur, Regular rate and rhythm, S1, S2 without murmur, rub or gallop. ABDOMEN: Soft, NT, ND, (+) BS, no guarding, no rebound, no hepatosplenomegaly, no masses. EXTREMITIES: 2+ pulses, warm NEUROLOGICAL: somnolent, non-focal PSYCH: Flat affect Laboratory Results - last 24 hr 01/26/18 01/26/18 06:20 06:20 Iron 10 L TIBC 226 L Iron Saturation 4 L Transferrin 179 L Problem List - Problems (1) H/O TB (tuberculosis) Code(s): Z86.11 - PERSONAL HISTORY OF TUBERCULOSIS (2) Alcohol dependence with uncomplicated withdrawal Code(s): F10.230 - ALCOHOL DEPENDENCE WITH WITHDRAWAL, UNCOMPLICATED (3) Ascending aortic aneurysm Code(s): I71.2 - THORACIC AORTIC ANEURYSM, WITHOUT RUPTURE (4) Cocaine dependence Code(s): F14.20 - COCAINE DEPENDENCE, UNCOMPLICATED (5) CHF (congestive heart failure) Code(s): I50.9 - HEART FAILURE, UNSPECIFIED (6) HTN (hypertension) Code(s): I10 - ESSENTIAL (PRIMARY) HYPERTENSION Qualifiers: Hypertension type: essential hypertension Qualified Code(s): I10 - Essential (primary) hypertension (7) Nicotine dependence Code(s): F17.200 - NICOTINE DEPENDENCE, UNSPECIFIED, UNCOMPLICATED Qualifiers: Nicotine product type: cigarettes Substance use status: uncomplicated Qualified Code(s): F17.210 - Nicotine dependence, cigarettes, uncomplicated (8) Status post left hip replacement Code(s): Z96.642 - PRESENCE OF LEFT ARTIFICIAL HIP JOINT (9) 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
[2018-01-27 11:00] LABS: HEMOGLOBIN 9.3 GM/dL (11.7-16.9); MCH 24.6 pg (25.7-33.7)
[2018-01-27 11:02] LABS: HEMATOCRIT 29.3 % (35.4-49); MCHC 31.9 g/dl (32.0-35.9); MEAN PLT VOLUME 7.7 fl (7.5-11.1); PLATELET COUNT 687 K/MM3 (134-434); RDW 20.9 % (11.9-15.9)
[2018-01-27 11:28] LABS: ALBUMIN 2.7 g/dl (3.4-5.0); ANION GAP 10 (8-16); BLOOD UREA NITROGEN 31 mg/dL (7-18); CALCIUM 8.6 mg/dL (8.5-10.1); CHLORIDE 104 mmol/L (98-107); CO2 25 mmol/L (21-32); GLUCOSE,RANDOM 72 mg/dL (74-106); POTASSIUM 5.5 mmol/L (3.5-5.1); SODIUM 139 mmol/L (136-145)
[2018-01-27 11:31] LABS: ALK PHOS 115 U/L (45-117); BILIRUBIN,TOTAL 0.2 mg/dL (0.2-1.0); CREATININE 1.5 mg/dL (0.7-1.3); SGOT/AST 12 U/L (15-37); SGPT/ALT 9 U/L (12-78); TOT PROT 6.9 g/dl (6.4-8.2)
--- NOTE | 2018-01-27 12:34 | EKG ---
Test Reason : Blood Pressure : / mmHG Vent. Rate : 078 BPM Atrial Rate : 078 BPM P-R Int : 154 ms QRS Dur : 092 ms QT Int : 410 ms P-R-T Axes : 047 032 031 degrees QTc Int : 467 ms NORMAL SINUS RHYTHM VOLTAGE CRITERIA FOR LEFT VENTRICULAR HYPERTROPHY ABNORMAL ECG WHEN COMPARED WITH ECG OF 27-JAN-2018 09:12, NO SIGNIFICANT CHANGE WAS FOUND Confirmed by MOUNA MATTSON MD ([id number]) on 01/27/2018 12:33:48 PM Referred By: Confirmed By:MOUNA MATTSON MD
[2018-01-27] MEDS ORDERED: SODIUM POLYSTYRENE SULFONATE 15 GM/60 ML BOTTLE PO ONE (13:17)
--- NOTE | 2018-01-27 13:19 | PN ---
Teaching Attending Note Name of Resident: Alfredo D eLa Cruz ATTENDING PHYSICIAN STATEMENT I saw and evaluated the patient. I reviewed the resident's note and discussed the case with the resident. I agree with the resident's findings and plan as documented. SUBJECTIVE: Patient ambulating in room. He has no complaints and says "everything is ok as far as my health." OBJECTIVE: Vital Signs Period Temp Pulse Resp BP Sys/Parsons Pulse Ox Last 24 Hr 98.2 F-98.7 F 78-100 18-20 94-140/62-78 98 HEART: S1S2, RRR, (+) 2/6 SM LUNGS: Scattered crackles ABDOMEN: Soft, non-tender, non-distended, normal BS EXTREMITIES: No edema Laboratory Results - last 24 hr 01/26/18 01/26/18 01/27/18 06:20 06:20 10:18 WBC 9.0 RBC 3.80 L Hgb 9.3 L Hct 29.3 L MCV 77.0 L MCH 24.6 L MCHC 31.9 L RDW 20.9 H Plt Count 687 H MPV 7.7 Sodium Potassium Chloride Carbon Dioxide Anion Gap BUN Creatinine Creat Clearance w eGFR Random Glucose Calcium Iron 10 L TIBC 226 L Iron Saturation 4 L Transferrin 179 L Total Bilirubin AST ALT Alkaline Phosphatase Total Protein Albumin 01/27/18 10:18 WBC RBC Hgb Hct MCV MCH MCHC RDW Plt Count MPV Sodium 139 Potassium 5.5 H Chloride 104 Carbon Dioxide 25 Anion Gap 10 BUN 31 H Creatinine 1.5 H Creat Clearance w eGFR 49.54 Random Glucose 72 L Calcium 8.6 Iron TIBC Iron Saturation Transferrin Total Bilirubin 0.2 D AST 12 L ALT 9 L D Alkaline Phosphatase 115 Total Protein 6.9 Albumin 2.7 L Current Medications Generic Name Dose Route Start Last Admin Trade Name Freq PRN Reason Stop Dose Admin Amlodipine Besylate 10 mg 01/25/18 21:30 01/27/18 09:54 Norvasc - PO 10 mg DAILY MAGDALENA Administration Aspirin 81 mg 01/25/18 21:30 01/27/18 09:54 Asa - PO 81 mg DAILY MAGDALENA Administration Carvedilol 25 mg 01/25/18 22:00 01/27/18 09:54 Coreg - PO 25 mg BID MAGDALENA Administration Diazepam 5 mg 01/26/18 10:45 01/27/18 10:00 Valium - PO 5 mg Q6H PRN Administration WITHDRAWAL(CONT SUBST) Docusate Sodium 100 mg 01/25/18 20:27 Colace - PO BID PRN CONSTIPATION Escitalopram Oxalate 20 mg 01/25/18 21:30 01/27/18 09:54 Lexapro - PO 20 mg DAILY MAGDALENA Administration Heparin Sodium (Porcine) 5,000 unit 01/25/18 20:30 01/27/18 09:54 Heparin - SQ 5,000 unit Q8H-IV MAGDALENA Administration Methadone HCl 10 mg 01/26/18 11:00 01/27/18 06:10 Dolophine - PO 02/01/18 10:59 10 mg DAILY@0600 MAGDALENA Administration Polyethylene Glycol 17 gm 01/25/18 20:27 Miralax (For Daily Use) - PO DAILY PRN CONSTIPATION Multivit/Folic Acid/Iron 1 tab 01/26/18 10:00 01/27/18 09:54 Vitamins (Sjr) - PO 1 tab DAILY MAGDALENA Administration Thiamine HCl 100 mg 01/26/18 22:00 01/26/18 22:15 Vitamin B1 - PO 100 mg HS MAGDALENA Administration Trazodone HCl 50 mg 01/25/18 22:00 01/26/18 22:15 Desyrel - PO 50 mg HS MAGDALENA Administration Zolpidem Tartrate 10 mg 01/26/18 11:08 Ambien - PO HS PRN INSOMNIA ASSESSMENT AND PLAN: This is a 48 year old man with a history of AAA, depression, CHF, opioid dependence who was sent to the ED from [facility] for positive PPD, abnormal CXR , leukocytosis, anemia. 1. Possible pulmonary TB reactivation - Sputum AFB, quantiferon gold pending - Maintain isolation 2. Opioid dependence - Continue Methadone 3. Continuous alcohol dependence - Continue Valium as needed for withdrawal - Continue thiamine, folic acid, MVI 4. Acute kidney injury on stage 3 CKD - Improving 5. HTN - Continue Norvasc, Coreg 6. History of CHF 7. History of AAA and endovascular repair 8. Nicotine dependence 9. Depression - Continue Lexapro, Trazodone 10. Acute anemia on anemia secondary to chronic illness - Check stool occult blood - Hemoglobin is stable
--- NOTE | 2018-01-27 13:19 | PN ---
Progress Note, Physician Chief Complaint: ID Asymptomatic Wants to be discharged - Current Medication List Current Medications: Active Medications Amlodipine Besylate (Norvasc -) 10 mg PO DAILY [facility] Last Admin: 01/27/18 09:54 Dose: 10 mg Aspirin (Asa -) 81 mg PO DAILY [facility] Last Admin: 01/27/18 09:54 Dose: 81 mg Carvedilol (Coreg -) 25 mg PO BID [facility] Last Admin: 01/27/18 09:54 Dose: 25 mg Diazepam (Valium -) 5 mg PO Q6H PRN PRN Reason: WITHDRAWAL(CONT SUBST) Last Admin: 01/27/18 10:00 Dose: 5 mg Docusate Sodium (Colace -) 100 mg PO BID PRN PRN Reason: CONSTIPATION Escitalopram Oxalate (Lexapro -) 20 mg PO DAILY [facility] Last Admin: 01/27/18 09:54 Dose: 20 mg Heparin Sodium (Porcine) (Heparin -) 5,000 unit SQ Q8H-IV [facility] Last Admin: 01/27/18 09:54 Dose: 5,000 unit Methadone HCl (Dolophine -) 10 mg PO DAILY@0600 [facility] Stop: 02/01/18 10:59 Last Admin: 01/27/18 06:10 Dose: 10 mg Polyethylene Glycol (Miralax (For Daily Use) -) 17 gm PO DAILY PRN PRN Reason: CONSTIPATION Multivit/Folic Acid/Iron ( Vitamins (Sjr) -) 1 tab PO DAILY [facility] Last Admin: 01/27/18 09:54 Dose: 1 tab Thiamine HCl (Vitamin B1 -) 100 mg PO HS [facility] Last Admin: 01/26/18 22:15 Dose: 100 mg Trazodone HCl (Desyrel -) 50 mg PO HS [facility] Last Admin: 01/26/18 22:15 Dose: 50 mg Zolpidem Tartrate (Ambien -) 10 mg PO HS PRN PRN Reason: INSOMNIA - Objective Vital Signs: Vital Signs Temperature 98.2 F 01/27/18 10:00 Pulse Rate 83 01/27/18 10:00 Respiratory Rate 18 01/27/18 10:00 Blood Pressure 140/75 01/27/18 10:00 O2 Sat by Pulse Oximetry (%) 98 01/26/18 21:00 Constitutional: Yes: No Distress Cardiovascular: Yes: S1, S2 Respiratory: Yes: WNL, Regular, CTA Bilaterally Gastrointestinal: Yes: WNL, Normal Bowel Sounds, Soft Labs: CBC, BMP 01/27/18 10:18 01/27/18 10:18 Assessment/Plan Microbiology 01/27/18 10:00 Sputum - Expectorated AFB Smear Concentration - Preliminary 01/27/18 10:00 Sputum - Expectorated Mycobacterial Culture - Preliminary Laboratory Tests 01/27/18 01/27/18 01/27/18 10:18 10:18 10:18 WBC 9.0 Hgb 9.3 L Hct 29.3 L Plt Count 687 H BUN 31 H Creatinine 1.5 H Creat Clearance w eGFR 49.54 TB Test (QFT) Pending Assessment Polysubstance abuse with unusual appearing right sided infitrate PPD pos by history Patient is anemic unclear etiology and has elevated platelets count ? reactive you could see this in TB but acute phase reactant Plan Agree with plan to get Sputum for AFB AND PCR Consider bronchoscopy ESR CRP Note he says he was treated for PNA at [facility] SEP 2017 ? CT done for comparison [facility] POST
[2018-01-27 15:44] VITALS: BP 130/84; PULSE 64; TEMP 98
--- NOTE | 2018-01-27 23:32 | DS ---
Physical Exam: SUBJECTIVE: Patient seen and examined - Pt somnolent, poorly cooperative during interview; A&Ox2; denies f/c/n/v/d; denies f/c/n/v/d, night sweats, cough, SOB, ab pain, rashes; Endorses mild chest discomfort with deep inspiration; - pt agitated w/ staff overnight; afebrile, persistently hypotensive to 90s systolic; Per pulm recs, suggest possible flex bronchoscopy to further evaluation lung pathology; anemia likely ACD OBJECTIVE: Vital Signs Intake & Output 01/24/18 01/25/18 01/26/18 01/27/18 23:59 23:59 23:59 23:59 Intake Total 500 Balance 500 Weight 72.575 kg Period Temp Pulse Resp BP Sys/Parsons Pulse Ox Last 24 Hr 98.0 F-98.6 F 64-100 18-20 94-140/62-84 98 PHYSICAL EXAM GENERAL: A&Ox2, somnolent HEAD: Normal with no signs of trauma. EYES: PERRL, extraocular movements intact, sclera anicteric, conjunctiva clear. No ptosis. ENT: Ears normal, nares patent, oropharynx clear without exudates, moist mucous membranes. NECK: Trachea midline, full range of motion, supple. LUNGS: No respiratory distress or accessory muscle use. BL upper lobe crackles, decreased air entry. Bibasilar trace rhonchi. HEART: 2/6 systolic ejection murmur, best heard at LUSB. Regular rate and rhythm , S1, S2 without murmur, rub or gallop. ABDOMEN: Soft, nontender, nondistended, normoactive bowel sounds, no guarding, no rebound, no hepatosplenomegaly, no masses. EXTREMITIES: 2+ pulses, warm, well-perfused, no edema. Multiple linear scars on R forearm extensor surface. Healed eschar on extensor surface of L forearm. NEUROLOGICAL: Cranial nerves II through XII grossly intact. Normal speech, gait not observed. PSYCH: Flat affect SKIN: L lateral forearm with small eschar, likely prior injection site. LABS Laboratory Results - last 24 hr CBC, BMP 01/27/18 10:18 01/27/18 10:18 01/26/18 01/26/18 01/27/18 06:20 06:20 10:18 WBC 9.0 RBC 3.80 L Hgb 9.3 L Hct 29.3 L MCV 77.0 L MCH 24.6 L MCHC 31.9 L RDW 20.9 H Plt Count 687 H MPV 7.7 Sodium Potassium Chloride Carbon Dioxide Anion Gap BUN Creatinine Creat Clearance w eGFR Random Glucose Calcium Iron 10 L TIBC 226 L Iron Saturation 4 L Transferrin 179 L Total Bilirubin AST ALT Alkaline Phosphatase Total Protein Albumin 01/27/18 10:18 WBC RBC Hgb Hct MCV MCH MCHC RDW Plt Count MPV Sodium 139 Potassium 5.5 H Chloride 104 Carbon Dioxide 25 Anion Gap 10 BUN 31 H Creatinine 1.5 H Creat Clearance w eGFR 49.54 Random Glucose 72 L Calcium 8.6 Iron TIBC Iron Saturation Transferrin Total Bilirubin 0.2 D AST 12 L ALT 9 L D Alkaline Phosphatase 115 Total Protein 6.9 Albumin 2.7 L Microbiology 01/27/18 10:00 Sputum - Expectorated Gram Stain - Final 01/27/18 10:00 Sputum - Expectorated AFB Smear Concentration - Preliminary 01/27/18 10:00 Sputum - Expectorated Direct Acid Fast Bacilli Smear - Final 01/27/18 10:00 Sputum - Expectorated Mycobacterial Culture - Preliminary Chest CT 01/26 - IMPRESSION: Nonspecific bilateral pulmonary infiltrates are noted as discussed above which may be on the basis of tuberculosis. Paraseptal emphysema. Probable superimposed centrilobular emphysema (versus representing subcentimeter postinflammatory/ postinfectious blebs). Mild nonspecific mediastinal lymphadenopathy. Atherosclerotic coronary artery calcifications which are at least moderate in degree. Endovascular aortic stent in place Consult: Pulm - Seen by Dr. Roque ID - Seen by Dr. Fink [facility]: Prehospital course: 48 year old male with a past medical history of hypertension, abdominal aortic aneurysm s/p aortic stent, CHF, opioid addiction, TB exposure (1995) brought from [facility] for abnormal CXR and labwork. Patient denies any cough, shortness of breath, fevers, chills, nausea, vomiting, diarrhea, chest pain, abdominal pain. Patient does endorse night sweats over the past 3 nights as well as weight loss. He states that he was exposed to TB in the past and was treated with one medication, but he denies ever having overt tuberculosis. Patient states that he had an episode of pneumonia in the past. He was admitted for detox at [facility] on 01/21 for heroin and alcohol use. He completed 4 days at [facility] before arriving here. Denies having withdrawal symptoms. Denies ever having episode of seizure. Hospital course: In ED, pt labs notable for anemia 8.8 hgb, plt 582, increased eos 8.2% and increased Cr 1.6, with no other abnormalities. No WBC, fever. Chest Ct with results as noted above. Given suspicious chest CT and hx of TB exposure in past , pt put on isolation, sputum gram stain, cultures and Quantiferon studies sent. Pulm and ID consulted, as well as detox team. Per ID, unlikely to be TB, recommended f/u all pending studies. Per Pulm, suggested possible PNA given CT finding, suggested possible flex bronchoscopy for further work-up. Repeat labs notable for hyperkalemia to 5.5. On Day 2 of admission, pt noncompliant with medical team, decided to leave AMA as he was concerned about paying his phone bill and other concerns. Informed about the risk of leaving before receiving adequate medical care, stated he was aware and would return to the hospital if his test results were positive. Refused all further medical therapy and left AMA. Date of Admission:01/25/18 Date of Discharge: 01/27/18 Patient left AMA after being informed of risks of leaving without adequate medical treatment. Advised to return to hospital if symptoms worsen or TB test results are positive. Minutes to complete discharge: 35 Discharge Summary Reason For Visit: TUBERCULOSIS; PNEUMONIA Condition: Stable - Instructions Diet, Activity, Other Instructions: Please return to the emergency department with any new or worsening symptoms or concerns. Please follow up with your primary care physician within 72 hours. Disposition: AGAINST MEDICAL ADVICE - Home Medications Comprehensive Discharge Medication List: Ambulatory Orders Escitalopram Oxalate [Lexapro -] 20 mg PO DAILY #30 tablet 01/22/18 traZODone HCL [Desyrel -] 50 mg PO HS #30 tablet 01/22/18 Amlodipine Besylate [Norvasc -] 10 mg PO DAILY #30 tablet 01/24/18 Aspirin [ASA -] 81 mg PO DAILY #30 tab.chew 01/24/18 Carvedilol [Coreg -] 25 mg PO BID #60 tablet 01/24/18 This patient is new to me today: No Emergency Visit: Yes ED Registration Date: 01/25/18 Care time: The patient presented to the Emergency Department on the above date and was hospitalized for further evaluation of their emergent condition. Critical Care patient: No - Discharge Referral Referred to [facility] No
== END 2018-01-27 16:39 | disposition left against medical advice (07) | DRG 137 ==
LOC: JER 16:31 → JERBED 19:24 → J8W 21:59
PROVIDERS: ADMIT Internal Medicine; ATTEND Internal Medicine
DX: A15.9 Respiratory tuberculosis unspecified (principal); J18.9 Pneumonia, unspecified organism; N17.9 Acute kidney failure, unspecified; D50.9 Iron deficiency anemia, unspecified; I10 Essential (primary) hypertension; F32.9 Major depressive disorder, single episode, unspecified; F11.20 Opioid dependence, uncomplicated; I13.0 Hypertensive heart and chronic kidney disease with heart failure and stage 1 through stage 4 chronic kidney disease, or unspecified chronic kidney disease; N18.3 Chronic kidney disease, stage 3 (moderate); I50.9 Heart failure, unspecified; F10.230 Alcohol dependence with withdrawal, uncomplicated; F14.20 Cocaine dependence, uncomplicated; I71.2 Thoracic aortic aneurysm, without rupture; I25.10 Atherosclerotic heart disease of native coronary artery without angina pectoris; F17.210 Nicotine dependence, cigarettes, uncomplicated; M06.9 Rheumatoid arthritis, unspecified; J44.9 Chronic obstructive pulmonary disease, unspecified; D72.829 Elevated white blood cell count, unspecified
CPT/HCPCS: 36415; 71250-TC; 80048; 80053; 83540; 83550; 83735; 84100; 84466; 85025; 85027; 86480; 87070; 87116; 87205; 87206; 93005; 93010; 97116-GP; 97161-GP; 99283-25; J1644